=== PATIENT | male | born 1955 | race Caucasian/White ===

== ENCOUNTER → 2017-05-05 | Outpatient (CLI) | payer OTHER ==
[2017-05-05 12:50] LABS: BASO % 0.5 %; BASO ABS # 0.02 K/uL (0-0.2); EOS % 1.9 %; EOS ABS # 0.07 K/uL (0-0.5); HEMATOCRIT 43.6 % (42-52); HEMOGLOBIN 14.9 g/dL (14.0-18.0); IG# 0.01 K/uL (0.00-0.02); LYMPH % 28.3 %; LYMPH ABS # 1.06 K/uL (1.2-3.4); MEAN CELL VOLUME 90.6 fL (80-100); MEAN CORPUSCULAR HGB CONC 34.2 g/dl (32-36); MEAN PLATELET VOLUME 10.3 fL (7.4-10.4); MONO % 7.2 %; MONO ABS # 0.27 K/uL (0.11-0.59); NEUT % 61.8 %; NEUT ABS # 2.31 K/uL (1.4-6.5); PLATELET COUNT 252 K/uL (130-400); RED CELL DISTRIBUTION WIDTH SD 43.1 fL (36.4-46.3); WHITE BLOOD COUNT 3.74 K/uL (4.8-10.8)
[2017-05-05 13:44] LABS: ALBUMIN 3.9 gm/dl (3.4-5.0); ALT/SGPT 31 U/L (12-78); BLOOD UREA NITROGEN 13 mg/dl (7-18); CALCIUM 9.3 mg/dl (8.5-10.1); CARBON DIOXIDE 28 mmol/L (21-32); CHOLESTEROL 262 mg/dl (0-200); CREATININE 1.06 mg/dl (0.60-1.40); GLUCOSE 97 mg/dl (70-99); POTASSIUM 4.7 mmol/L (3.5-5.1); SODIUM 139 mmol/L (136-145)
[2017-05-05 13:47] LABS: ALKALINE PHOSPHATASE 100 U/L (45-117); AST/SGOT 20 U/L (15-37); LDL CHOLESTEROL CALCULATED 178 mg/dl; TOTAL PROTEIN 7.3 gm/dl (6.4-8.2)
== END | disposition home or self-care (01) ==
LOC: C.LABPVFM 08:30
PROVIDERS: ATTEND Nurse Practitioner Family
DX: E78.5 Hyperlipidemia, unspecified (principal); M25.50 Pain in unspecified joint; B35.1 Tinea unguium

== ENCOUNTER → 2017-06-06 | Outpatient (CLI) | payer OTHER ==
--- NOTE | 2017-06-06 16:44 | MYOCARDIAL PERFUSION SCAN ---
NUCLEAR STRESS TEST STUDY REQUESTED BY: Charito Bernstein. STUDY TITLE: ONE-DAY NUCLEAR MEDICINE TECHNETIUM-99M MYOCARDIAL PERFUSION SCAN. INDICATION: Atypical chest pain. ECHOCARDIOGRAM: Sinus bradycardia at a ventricular rate of 52. There are no significant ST abnormalities. STRESS ECHOCARDIOGRAM. The patient exercised for 10 minutes and 13 seconds achieving 13.4 METS, a maximum blood pressure of 150/60. His heart rate aishwarya from 66-139 representing 88% of maximum predicted heart rate. There were no dynamic ST changes with exercise. No chest pain with stress. TECHNIQUE: For the stress portion of the study 32.6 mCi of technetium-99m Cardiolite IV was injected at 9:30 a.m. on 06/06/2017. Fifteen minutes following the injection, imaging of the heart was performed in multiple projections. For the rest portion of the study, 10.5 mCi of technetium-99m Cardiolite was injected IV at 7:35 a.m. One hour following injection, imaging of the heart was performed in the same projections. FINDINGS: Raw images were reviewed in detail. There was minimal gut uptake impacting the inferior imaging border of the heart. There was minimal vertical motion, more so on stress than rest. Short axis, long, vertical long axis, horizontal long axis images were reviewed in detail. There was normal myocardial perfusion both with stress and rest. LV size was normal with a calculated end-diastolic volume of 94. LV function was normal with a calculated ejection fraction of 55%. There were no regional wall motion abnormalities. IMPRESSION: 1. Normal myocardial perfusion scan negative for significant exercise induced ischemia. 2. Normal left ventricular size and function with an ejection fraction of 55% with no regional wall motion abnormalities. 3. Negative stress ECG for ischemia at 88% MPHR 4. Excellent functional capacity. Exercised 10:13 minutes achieved 13.4 METS. Overall, the combined findings represent a low risk stress test for adverse future cardiac events. [facility]
== END | disposition home or self-care (01) ==
LOC: C.NUCL 07:07
PROVIDERS: ATTEND Nurse Practitioner Family
DX: R07.89 Other chest pain (principal)

== ENCOUNTER → 2017-10-31 | Outpatient (CLI) | payer OTHER | END | disposition home or self-care (01) | LOC: C.PATHSPEC 17:21 | PROVIDERS: ATTEND Urology | DX: N40.0 Benign prostatic hyperplasia without lower urinary tract symptoms (principal); R31.9 Hematuria, unspecified ==

== ENCOUNTER → 2017-11-06 | Outpatient (CLI) | payer OTHER ==
[~2017-11-06] MED LIST: OPTIRAY 320 IV PRN
[2017-11-06 16:34] LABS: HEMATOCRIT 42.3 % (42-52); HEMOGLOBIN 14.7 g/dL (14.0-18.0); MEAN CELL VOLUME 88.5 fL (80-100); MEAN CORPUSCULAR HEMOGLOBIN 30.8 pg (25-34); MEAN CORPUSCULAR HGB CONC 34.8 g/dl (32-36); MEAN PLATELET VOLUME 9.4 fL (7.4-10.4); PLATELET COUNT 236 K/uL (130-400); RED CELL DISTRIBUTION WIDTH CV 12.5 % (11.5-14.5); RED CELL DISTRIBUTION WIDTH SD 40.2 fL (36.4-46.3); WHITE BLOOD COUNT 3.68 K/uL (4.8-10.8)
--- NOTE | 2017-11-06 17:50 | DIAGNOSTIC IMAGING REPORT ---
CT UROGRAM CLINICAL HISTORY: Hematuria. Benign prostatic hyperplasia. COMPARISON STUDY: No priors. TECHNIQUE: Before and following the IV administration of 121 cc of Optiray 320, CT urogram of the abdomen and pelvis is performed from the lung bases to the proximal femora. Images are reviewed in the axial, sagittal, and coronal planes. IV contrast was administered without complication. A dose lowering technique was utilized adhering to the principles of ALARA. CT DOSE: 935.70 mGycm FINDINGS: Lung bases: The heart is normal in size and without pericardial effusion. The lung bases are clear. There is a small hiatal hernia. Liver: The contrast-enhanced liver is normal in size, contour, and attenuation. There is no intrahepatic biliary ductal dilatation. The hepatic veins and portal veins are patent. Scattered subcentimeter hepatic cysts are noted. Gallbladder: Unremarkable. Spleen: Normal in size and attenuation. Pancreas: Unremarkable. Adrenal glands: Unremarkable. Kidneys and ureters: The contrast enhanced kidneys are normal in size and without hydronephrosis. There are no renal calculi identified on the unenhanced images. The kidneys enhance and excrete symmetrically. There is no enhancing renal cortical mass lesion identified. There is no evidence of urothelial lesion within the renal pelvis bilaterally or along the course of either ureter. Abdominal vasculature: The abdominal aorta is normal in course and caliber. Bowel: There is moderate colonic fecal retention. No bowel obstruction is seen. The appendix is not identified and reported surgically absent. Peritoneum: There is no intraperitoneal free air or abdominal ascites. There is a small fat-containing umbilical hernia. Lymphadenopathy: None. Pelvic viscera: The prostate gland is enlarged and heterogeneous, measuring 5 cm in transverse diameter. There is median lobe hypertrophy. The bladder wall is mildly thickened and trabeculated suggesting chronic outlet obstruction. The bladder is otherwise normal as imaged. Bilateral varicoceles are suggested. Skeletal structures: No lytic or blastic lesions are seen. Mild lumbosacral spondylosis is observed. IMPRESSION: 1. Unremarkable assessment of the kidneys and ureters. 2. Prostatomegaly with evidence of chronic bladder outlet obstruction. 3. Moderate colonic fecal retention. 4. Additional findings as above. Electronically signed by: Luis Graham M.D. 11/06/2017 5:49 PM Dictated Date/Time: 11/06/2017 5:28 PM
== END | disposition home or self-care (01) ==
LOC: C.CTS 15:45
PROVIDERS: ATTEND Urology
DX: R31.9 Hematuria, unspecified (principal); N40.0 Benign prostatic hyperplasia without lower urinary tract symptoms

== ENCOUNTER 2022-02-18 05:10 | Inpatient (IN) ==
[~2022-02-18 05:10] MED LIST changes: -OPTIRAY 320 IV PRN; +RAPID SEQUENCE INDUCTION BAG ONE
--- NOTE | 2022-02-18 05:29 | Emergency Department Note ---
History of Present Illness General Chief complaint: Altered Mental Status Time Seen by Provider: 02/18/22 05:15 History of Present Illness 67-year-old male presents via EMS reportedly stated to his around 11 PM that he was not feeling well had general malaise. Of note in the records the patient has a history of prostate cancer, per EMS he was found in a second floor bathroom with sonorous respirations had essentially loss of bowel and had a lateral gaze to the left and was not reportedly moving his right side but was moving his left side with a strange movement and jerking movement to the left upper extremity according to EMS. Patient had multiple episodes of vomiting. Patient did not follow any commands reportedly his blood pressure was 70 systolic patient was given 1 L of IV fluids by prehospital which increased his blood pressure reportedly the patient began to respond but was still nonverbal. There is no further history initially available to me upon presentation Home Medications Medication Instructions Recorded Confirmed Type calcium carbonate 600 mg calcium 600 mg PO QDL 04/16/18 12/07/21 History (1,500 mg) tablet (Calcium) cholecalciferol (vitamin D3) 50 2,000 unit PO QDL 04/16/18 12/07/21 History mcg (2,000 unit) tablet (Vitamin D3) vitamin E 268 mg (400 unit) capsule 400 units PO QDL 09/07/18 12/07/21 History ibuprofen 200 mg tablet 400 mg PO DAILY PRN Pain 01/21/19 12/07/21 History naproxen sodium 220 mg tablet 220 mg PO DAILY PRN Pain 01/21/19 12/07/21 History (Aleve) omeprazole 20 mg capsule,delayed 20 mg PO DAILY PRN GERD #30 caps 10/26/20 12/07/21 Rx release bicalutamide 50 mg tablet 50 mg PO DAILY 05/26/21 12/07/21 History gabapentin 300 mg capsule 300 mg PO DAILY #30 caps 11/30/21 12/07/21 Rx atorvastatin 20 mg tablet 20 mg PO QAM #90 tabs 02/14/22 Rx Allergies Allergy/AdvReac Type Severity Reaction Status Date / Time No Known Allergies Allergy Verified 12/07/21 07:59 Past Med/Surg History Medical History BPH (benign prostatic hyperplasia) Cervical herniated disc History of brachytherapy Hx of colonic polyps Hx of skin cancer, basal cell Hyperlipidemia Lumbar facet joint syndrome Neck pain with occasional numbness/tingling in right arm Neurogenic claudication due to lumbar spinal stenosis Osteoarthritis Osteoporosis Prostate cancer Radiation, brachytherapy and lupron injections Surgical History H/O: vasectomy History of appendectomy History of cervical spinal surgery discectomy (1992) History of colonoscopy History of cystoscopy S/P left knee arthroscopy S/P Mohs surgery for basal cell carcinoma FACE Family History Father , age 88 old age PMH prostate ca Prostate cancer Mother , age 88 old age Dementia Sister No problems noted. Brother Controlled type 2 diabetes mellitus Brother No problems noted. Brother No problems noted. Brother No problems noted. Brother , age 13 rheumatic heart disease No problems noted. 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 Feels Safe at Home: Yes Childhood Exposure to Second-Hand Smoke: No caffeine: Yes (coffee) Dental Care, Regularly: Yes Physical Activity Frequency: Daily Seatbelt Use: always Sunscreen Use: Yes Assistive Devices: Glasses Review of Systems Unobtainable due to reduced consciousness nonverbal Physical Exam Vital Signs Vital Signs - 24 hr 02/18/22 05:16 02/18/22 05:12 02/18/22 05:15 Pulse Rate 88 88 Pulse Rate from SpO2 Sensor 89 Pulse Rhythm Regular Pulse Strength Normal Respiratory Rate 20 16 Respiratory Effort / Characteristics Non-Labored Spontaneous Respiratory Depth Normal Respiratory Pattern Regular Blood Pressure 93/58 L 93/53 L Blood Pressure Mean 69 66 Pulse Oximetry 96 89 L 97 Oxygen Delivery Method Non-rebreather Oxygen Flow Rate 15 Sepsis Recent Fever Within 48 Hours No Sepsis New/Unexplained Change in Mental Status Yes Sepsis Action Taken by Nursing Physician Notified 02/18/22 05:39 02/18/22 05:41 02/18/22 05:45 Pulse Rate 84 93 H 101 H Pulse Rate from SpO2 Sensor 86 87 95 H Pulse Rhythm Pulse Strength Respiratory Rate 18 16 14 Respiratory Effort / Characteristics Respiratory Depth Respiratory Pattern Blood Pressure 91/63 L Blood Pressure Mean 72 Pulse Oximetry 94 99 95 Oxygen Delivery Method Oxygen Flow Rate Sepsis Recent Fever Within 48 Hours Sepsis New/Unexplained Change in Mental Status Sepsis Action Taken by Nursing 02/18/22 05:46 02/18/22 05:47 02/18/22 05:47 Pulse Rate 97 H 95 H Pulse Rate from SpO2 Sensor 98 H 100 H Pulse Rhythm Pulse Strength Respiratory Rate 15 16 Respiratory Effort / Characteristics Respiratory Depth Respiratory Pattern Blood Pressure 88/59 L 88/59 L Blood Pressure Mean 68 68 Pulse Oximetry 97 95 Oxygen Delivery Method Oxygen Flow Rate Sepsis Recent Fever Within 48 Hours Sepsis New/Unexplained Change in Mental Status Sepsis Action Taken by Nursing 02/18/22 05:55 02/18/22 06:00 02/18/22 06:00 Pulse Rate 93 H 94 H Pulse Rate from SpO2 Sensor 100 H 95 H Pulse Rhythm Pulse Strength Respiratory Rate 17 20 Respiratory Effort / Characteristics Respiratory Depth Respiratory Pattern Blood Pressure 106/63 Blood Pressure Mean 77 Pulse Oximetry 88 L 95 Oxygen Delivery Method Oxygen Flow Rate Sepsis Recent Fever Within 48 Hours Sepsis New/Unexplained Change in Mental Status Sepsis Action Taken by Nursing 02/18/22 06:15 02/18/22 06:15 02/18/22 06:30 Pulse Rate 101 H Pulse Rate from SpO2 Sensor 103 H Pulse Rhythm Pulse Strength Respiratory Rate 18 Respiratory Effort / Characteristics Respiratory Depth Respiratory Pattern Blood Pressure 115/65 111/68 Blood Pressure Mean 81 82 Pulse Oximetry 94 Oxygen Delivery Method Oxygen Flow Rate Sepsis Recent Fever Within 48 Hours Sepsis New/Unexplained Change in Mental Status Sepsis Action Taken by Nursing 02/18/22 06:30 02/18/22 06:45 Pulse Rate 106 H 100 H Pulse Rate from SpO2 Sensor 98 H 98 H Pulse Rhythm Pulse Strength Respiratory Rate 26 H 20 Respiratory Effort / Characteristics Respiratory Depth Respiratory Pattern Blood Pressure 103/76 Blood Pressure Mean 85 Pulse Oximetry 91 87 L Oxygen Delivery Method Oxygen Flow Rate Sepsis Recent Fever Within 48 Hours Sepsis New/Unexplained Change in Mental Status Sepsis Action Taken by Nursing GENERAL: Patient is awake; not following commands; stool on hands and legs; has lateral gaze to left and right sided neglect EYES: The conjunctivae are clear. The pupils are round and reactive. EARS, NOSE, MOUTH AND THROAT: The nose is without any evidence of any deformity. Mucous membranes are moist. Tongue is midline. NECK: The neck is supple RESPIRATORY: Normal respiratory effort is noted ; there is rhonchi b/l CARDIOVASCULAR: Regular rate and rhythm noted there no murmurs rubs or gallops normal S1 normal S2. GASTROINTESTINAL: The abdomen is soft. PELVIS: The Pelvis is stable BACK: No signs of trauma MUSCULOSKELETAL/EXTREMITIES: There is no evidence of gross deformity; initially patient was slow to move the right upper and right lower extremities; SKIN: There is no obvious evidence of any rash. There are no petechiae, pallor or cyanosis noted; stool on hands and legs NEUROLOGIC: Patient is awake, nonverbal, has a left lateral gaze Course Reevaluation(s) Reevaluation #1: Stroke alert was initiated after the patient returned from CAT scan is initially a CODE BLUE was called due to the fact that EMS said that the patient was agonal and vomiting was hypotensive and was unresponsive with possible posturing. Time: 05:48 Reevaluation #2: Patient is still nonverbal he is coughing he is grabbing at the nonrebreather mask but is not interactive with myself or was at bedside Time: 06:10 Reevaluation #3: Patient is still nonverbal at times coughing has a blood pressure; greater than 102 Time: 06:30 Consultations Consultation #1: Spoke with at bedside she stated last night he did not feel well around 11 PM he complained of general malaise and may be a headache. He typically has never complained of a headache. She then found him unresponsive in the bathroom at approximately 4 AM Time: 05:50 Consultation #2: Consult to Dr. Dinh from telestroke after the patient returned from CT, continues to have verbal neurologic exam not following commands moving all extremities however and coughing. She states that she will see the patient and evaluate on the telestroke monitor Time: 05:51 Consultation #3: Spoke with the patient's at bedside and she was asking if there is a protocol for stroke. Myself and the nursing staff reviewed that we are in fact initiating the stroke protocol and its in process currently and that a neurologist has been speaking to the patient on telestroke. Patient's CTs are negative. Spoke with the hospitalist from [facility] for admission and discussed that the issues after consultation with neurology. Also discussed the patient's presentation with Bk the physician journeyman operator assistant from the ICU Time: 06:10 Additional Consultation(s): 6:13 AM I spoke with Dr. Dinh again the patient is not a thrombectomy ca ndidate she would like to get a stat MRI with diffusion-weighted imaging and FLAIR imaging as this could be a wake-up stroke and if there is a mismatch there is a possibility that this patient could receive TNKase. 631 I also spoke to Dr. Dinh again and discussed the fact that the MRI will be obtained 700am - Case turned over to Dr Meng pending MRI and admit Administered Medications Discontinued Medications Sodium Chloride (Nss 1000ml) 1,000 mls @ 999 mls/hr IV .Q1H1M ONE Stop: 02/18/22 06:52 Last Infusion: 02/18/22 06:54 Dose: 0 mls/hr Documented By: Admin: 02/18/22 05:59 Dose: 999 mls/hr Documented By: AYANNA Ioversol (Optiray 320 500ml) 125 ml IV ONCE ONE Stop: 02/18/22 05:57 Last Admin: 02/18/22 05:56 Dose: 106 ml Documented By: ANABEL Lorazepam (Lorazepam 1 Mg/1 Ml Syr) 1 mg IV NOW STA; Protocol Stop: 02/18/22 06:49 Last Admin: 02/18/22 06:51 Dose: 1 mg Documented By: AYANNA Lorazepam (Lorazepam 1 Mg/1 Ml Syr) 1 mg IV NOW STA; Protocol Stop: 02/18/22 06:58 Last Admin: 02/18/22 06:59 Dose: 1 mg Documented By: AYANNA Ondansetron HCl (Ondansetron Inj 2 Mg/Ml 2 Ml Vial) 4 mg IV NOW STA Stop: 02/18/22 05:53 Last Admin: 02/18/22 06:00 Dose: 4 mg Documented By: AYANNA Critical Care Time Critical Care Time: Yes Total Critical Care Time: 45 I have personally spent greater than 45 minutes of critical care time in the direct management of this patient. This includes bedside care, interpretation of diagnostic studies, and testing, discussion with consultants, patient, and family members, and other required patient management activities. These minutes are in excess of all separately billable procedures. Medical Decision Making Medical Records Attestation: I reviewed the patient's medical records. Home Medications Current Medication List: was personally reviewed by me Laboratory Data Attestation: I reviewed the patient's lab results. Result diagrams: 02/18/22 05:22 02/18/22 05:22 Lab Results 02/18/22 02/18/22 02/18/22 Range/Units 05:22 05:22 05:22 WBC 6.76 (4.8-10.8) K/ul RBC 3.87 L (4.63-6.08) M/uL Hgb 12.8 L (14.0-18.0) g/dl POC Hgb (14.0-18.0) g/dl Hct 35.3 L (40.1-51.0) % POC Hct (42-52) % MCV 91.2 (80.0-100.0) fL MCH 33.1 (25.0-34.0) pg MCHC 36.3 H (32.0-36.0) g/dL RDW Std Deviation 41.3 (36.4-46.3) fL RDW Coeff of Tulio 12.4 (11.5-14.5) % Plt Count 213 (130-400) K/uL MPV 9.8 (9.4-12.4) fL Immature Gran % (Auto) 0.3 % Neut % (Auto) 86.3 % Lymph % (Auto) 7.7 % [place] % (Auto) 4.7 % Eos % (Auto) 0.9 % Baso % (Auto) 0.1 % Neut # (Auto) 5.83 (1.4-6.5) K/uL Lymph # (Auto) 0.52 L (1.2-3.4) K/uL [place] # (Auto) 0.32 (0.24-0.82) K/uL Eos # (Auto) 0.06 (0-0.50) K/uL Baso # (Auto) 0.01 (0-0.2) K/uL Immature Gran # (Auto) 0.02 (0.00-0.02) K/uL PT 10.5 (9.0-12.0) Seconds INR 1.0 (0.9-1.1) APTT 21.4 (21.0-31.0) Seconds PTT Ratio 0.8 POC Sodium (135-144) mmol/L Sodium (136-145) mmol/L POC Potassium (3.3-5.0) mmol/L Potassium (3.5-5.1) mmol/L POC Chloride (101-112) mmol/L Chloride (98-107) mmol/L Carbon Dioxide (21-32) mmol/L POC Total CO2 (24-31) mmol/L Anion Gap (3-11) POC Anion Gap (16-25) mmol/L POC BUN (7-18) mg/dl BUN (6-23) mg/dl Creatinine (0.6-1.4) mg/dl POC Creatinine (0.6-1.3) mg/dl Est Cr Clr Drug Dosing ml/min Est GFR ( Amer) ml/min Est GFR (Non-Af Amer) ml/min BUN/Creatinine Ratio (10-20) Glucose (70-99(Fasting)) mg/dl POC Glucose (other) (70-99) mg/dl Calcium (8.5-10.1) mg/dl POC Ioniz Calcium Josefina (1.12-1.32) mmol/l Magnesium (1.7-2.4) mg/dl Total Bilirubin (0.2-1.0) mg/dl AST (13-39) U/L ALT (7-52) U/L Alkaline Phosphatase (34-104) U/L Troponin I High Sens (0-20) pg/ml Total Protein (6.0-8.3) gm/dl Albumin (3.4-5.0) gm/dl Globulin (2.5-4.0) gm/dl Albumin/Globulin Ratio (0.9-2) SARS-CoV-2, RNA, NAAT (NEGATIVE) Blood Type O Positive Antibody Screen NEGATIVE 02/18/22 02/18/22 02/18/22 Range/Units 05:22 05:28 05:57 WBC (4.8-10.8) K/ul RBC (4.63-6.08) M/uL Hgb (14.0-18.0) g/dl POC Hgb 11.6 L (14.0-18.0) g/dl Hct (40.1-51.0) % POC Hct 34 L (42-52) % MCV (80.0-100.0) fL MCH (25.0-34.0) pg MCHC (32.0-36.0) g/dL RDW Std Deviation (36.4-46.3) fL RDW Coeff of Tulio (11.5-14.5) % Plt Count (130-400) K/uL MPV (9.4-12.4) fL Immature Gran % (Auto) % Neut % (Auto) % Lymph % (Auto) % [place] % (Auto) % Eos % (Auto) % Baso % (Auto) % Neut # (Auto) (1.4-6.5) K/uL Lymph # (Auto) (1.2-3.4) K/uL [place] # (Auto) (0.24-0.82) K/uL Eos # (Auto) (0-0.50) K/uL Baso # (Auto) (0-0.2) K/uL Immature Gran # (Auto) (0.00-0.02) K/uL PT (9.0-12.0) Seconds INR (0.9-1.1) APTT (21.0-31.0) Seconds PTT Ratio POC Sodium 139 (135-144) mmol/L Sodium 138 (136-145) mmol/L POC Potassium 4.0 (3.3-5.0) mmol/L Potassium 3.9 (3.5-5.1) mmol/L POC Chloride 104 (101-112) mmol/L Chloride 106 (98-107) mmol/L Carbon Dioxide 25 (21-32) mmol/L POC Total CO2 24 (24-31) mmol/L Anion Gap 7 (3-11) POC Anion Gap 17.0 (16-25) mmol/L POC BUN 18 (7-18) mg/dl BUN 18 (6-23) mg/dl Creatinine 1.24 (0.6-1.4) mg/dl POC Creatinine 1.3 (0.6-1.3) mg/dl Est Cr Clr Drug Dosing 65.2 ml/min Est GFR ( Amer) 68.8 ml/min Est GFR (Non-Af Amer) 59.4 ml/min BUN/Creatinine Ratio 14.5 (10-20) Glucose 187 H (70-99(Fasting)) mg/dl POC Glucose (other) 182 H (70-99) mg/dl Calcium 8.5 (8.5-10.1) mg/dl POC Ioniz Calcium Josefina 1.18 (1.12-1.32) mmol/l Magnesium 1.8 (1.7-2.4) mg/dl Total Bilirubin 0.6 (0.2-1.0) mg/dl AST 16 (13-39) U/L ALT 12 (7-52) U/L Alkaline Phosphatase 81 (34-104) U/L Troponin I High Sens 5.4 (0-20) pg/ml Total Protein 6.1 (6.0-8.3) gm/dl Albumin 3.7 (3.4-5.0) gm/dl Globulin 2.4 L (2.5-4.0) gm/dl Albumin/Globulin Ratio 1.5 (0.9-2) SARS-CoV-2, RNA, NAAT NEGATIVE (NEGATIVE) Blood Type Antibody Screen Imaging Data Attestation: I personally reviewed and interpreted this imaging study as follows: My Impression: Chest x-ray negative for infiltrate as interpreted by me Radiologist's Impression: Head CT 02/18/22 05:[address] OF THE BRAIN; CT ANGIOGRAM OF THE BRAIN; CT ANGIOGRAM OF THE NECK CLINICAL HISTORY: Strokelike symptoms. COMPARISON STUDY: No priors. TECHNIQUE: Unenhanced axial CT scan of the brain is performed. Subsequently, following the IV administration of 106 of Optiray 320, CT angiogram of the head and neck was performed from the aortic arch to the vertex. Images are reviewed in the axial, sagittal, and coronal planes. 3-D MIPS images are created and assessed. IV contrast was administered without complication. All measurements were calculated based on NASCET criteria. A dose lowering technique was utilized adhering to the principles of ALARA. The neck angiogram is degraded by motion artifact. CT DOSE: 1261.43 mGy.cm FINDINGS: Brain parenchyma: There is minimal microangiopathic change. There is no hemorrhage, mass effect, or evidence of acute territorial ischemia by CT criteria. There is no evidence of enhancing mass lesion on the angiogram phase images. The ventricles, sulci, and cisterns are normal in configuration. Ferreira- white matter differentiation is preserved. No extra-axial fluid collection is seen. Thoracic aorta: There is atherosclerotic calcification of the thoracic aorta. Visualized portions of the thoracic aorta are normal in caliber. The aortic arch demonstrates standard 3-vessel anatomy. Right carotid arterial system: The right common carotid artery is widely patent, as are the right internal and external carotid arteries. Left carotid arterial system: The vertebral arteries are widely patent bilaterally noting mild left-sided dominance. Vertebral arteries: The left common carotid artery is widely patent, as are the left internal and external carotid arteries. Subclavian arteries: Widely patent bilaterally. Intracranial vasculature: The internal carotid arteries are patent at the skull base, as are the anterior and middle cerebral arteries bilaterally. The vertebrobasilar system and posterior cerebral arteries are widely patent. The left vertebral artery is dominant. There is no aneurysm, high-grade stenosis, or focal vessel cut off seen throughout the intracranial circulation. Jugular veins: Patent bilaterally. Dural sinuses: Patent. Lung apices: Partially visualized upper lobe lung parenchyma appears clear. Soft tissues: The visualized pharyngeal soft tissues are normal in appearance noting angiographic phase technique. The oropharyngeal airway appears widely patent. The salivary and thyroid glands are normal in appearance. No cervical lymphadenopathy is seen. Skeletal structures: The calvarium appears intact. The cervical spine is maintained noting multilevel spondylosis. No lytic or blastic lesion is seen. Orbits: The bony orbits are intact. Orbital contents are normal as visualized. Sinuses and mastoids: There is trace fluid within the seen with sinusitis. The remaining paranasal sinuses are clear. The mastoid air cells are well pneumatized. IMPRESSION: 1. There is no hemorrhage, mass effect, or evidence of acute territorial ischemia by CT criteria. 2. Unremarkable CT angiogram of the brain. 3. Unremarkable CT angiogram of the neck. ACT 112: Negative or not required by law. Electronically signed by: Luis Graham M.D. 02/18/2022 6:17 AM Head CTA 02/18/22 05:[address] OF THE BRAIN; CT ANGIOGRAM OF THE BRAIN; CT ANGIOGRAM OF THE NECK CLINICAL HISTORY: Strokelike symptoms. COMPARISON STUDY: No priors. TECHNIQUE: Unenhanced axial CT scan of the brain is performed. Subsequently, fo llowing the IV administration of 106 of Optiray 320, CT angiogram of the head and neck was performed from the aortic arch to the vertex. Images are reviewed in the axial, sagittal, and coronal planes. 3-D MIPS images are created and assessed. IV contrast was administered without complication. All measurements were calculated based on NASCET criteria. A dose lowering technique was utilized adhering to the principles of ALARA. The neck angiogram is degraded by motion artifact. CT DOSE: 1261.43 mGy.cm FINDINGS: Brain parenchyma: There is minimal microangiopathic change. There is no hemorrhage, mass effect, or evidence of acute territorial ischemia by CT criteria. There is no evidence of enhancing mass lesion on the angiogram phase images. The ventricles, sulci, and cisterns are normal in configuration. Ferreira-white matter differentiation is preserved. No extra-axial fluid collection is seen. Thoracic aorta: There is atherosclerotic calcification of the thoracic aorta. Visualized portions of the thoracic aorta are normal in caliber. The aortic arch demonstrates standard 3-vessel anatomy. Right carotid arterial system: The right common carotid artery is widely patent, as are the right internal and external carotid arteries. Left carotid arterial system: The vertebral arteries are widely patent bilaterally noting mild left-sided dominance. Vertebral arteries: The left common carotid artery is widely patent, as are the left internal and external carotid arteries. Subclavian arteries: Widely patent bilaterally. Intracranial vasculature: The internal carotid arteries are patent at the skull base, as are the anterior and middle cerebral arteries bilaterally. The vertebrobasilar system and posterior cerebral arteries are widely patent. The left vertebral artery is dominant. There is no aneurysm, high-grade stenosis, or focal vessel cut off seen throughout the intracranial circulation. Jugular veins: Patent bilaterally. Dural sinuses: Patent. Lung apices: Partially visualized upper lobe lung parenchyma appears clear. Soft tissues: The visualized pharyngeal soft tissues are normal in appearance noting angiographic phase technique. The oropharyngeal airway appears widely patent. The salivary and thyroid glands are normal in appearance. No cervical lymphadenopathy is seen. Skeletal structures: The calvarium appears intact. The cervical spine is maintained noting multilevel spondylosis. No lytic or blastic lesion is seen. Orbits: The bony orbits are intact. Orbital contents are normal as visualized. Sinuses and mastoids: There is trace fluid within the seen with sinusitis. The remaining paranasal sinuses are clear. The mastoid air cells are well pneumat ized. IMPRESSION: 1. There is no hemorrhage, mass effect, or evidence of acute territorial ischemia by CT criteria. 2. Unremarkable CT angiogram of the brain. 3. Unremarkable CT angiogram of the neck. ACT 112: Negative or not required by law. Electronically signed by: Luis Graham M.D. 02/18/2022 6:17 AM Neck CTA 02/18/22 05:[address] OF THE BRAIN; CT ANGIOGRAM OF THE BRAIN; CT ANGIOGRAM OF THE NECK CLINICAL HISTORY: Strokelike symptoms. COMPARISON STUDY: No priors. TECHNIQUE: Unenhanced axial CT scan of the brain is performed. Subsequently, following the IV administration of 106 of Optiray 320, CT angiogram of the head and neck was performed from the aortic arch to the vertex. Images are reviewed in the axial, sagittal, and coronal planes. 3-D MIPS images are created and assessed. IV contrast was administered without complication. All measurements were calculated based on NASCET criteria. A dose lowering technique was utilized adhering to the principles of ALARA. The neck angiogram is degraded by motion artifact. CT DOSE: 1261.43 mGy.cm FINDINGS: Brain parenchyma: There is minimal microangiopathic change. There is no hemorr johny, mass effect, or evidence of acute territorial ischemia by CT criteria. There is no evidence of enhancing mass lesion on the angiogram phase images. The ventricles, sulci, and cisterns are normal in configuration. Ferreira-white matter differentiation is preserved. No extra-axial fluid collection is seen. Thoracic aorta: There is atherosclerotic calcification of the thoracic aorta. Visualized portions of the thoracic aorta are normal in caliber. The aortic arch demonstrates standard 3-vessel anatomy. Right carotid arterial system: The right common carotid artery is widely patent, as are the right internal and external carotid arteries. Left carotid arterial system: The vertebral arteries are widely patent bilate rally noting mild left-sided dominance. Vertebral arteries: The left common carotid artery is widely patent, as are the left internal and external carotid arteries. Subclavian arteries: Widely patent bilaterally. Intracranial vasculature: The internal carotid arteries are patent at the skull base, as are the anterior and middle cerebral arteries bilaterally. The vertebrobasilar system and posterior cerebral arteries are widely patent. The left vertebral artery is dominant. There is no aneurysm, high-grade stenosis, or focal vessel cut off seen throughout the intracranial circulation. Jugular veins: Patent bilaterally. Dural sinuses: Patent. Lung apices: Partially visualized upper lobe lung parenchyma appears clear. Soft tissues: The visualized pharyngeal soft tissues are normal in appearance noting angiographic phase technique. The oropharyngeal airway appears widely patent. The salivary and thyroid glands are normal in appearance. No cervical lymphadenopathy is seen. Skeletal structures: The calvarium appears intact. The cervical spine is maintained noting multilevel spondylosis. No lytic or blastic lesion is seen. Orbits: The bony orbits are intact. Orbital contents are normal as visualized. Sinuses and mastoids: There is trace fluid within the seen with sinusitis. The remaining paranasal sinuses are clear. The mastoid air cells are well pneumatized. IMPRESSION: 1. There is no hemorrhage, mass effect, or evidence of acute territorial ischemia by CT criteria. 2. Unremarkable CT angiogram of the brain. 3. Unremarkable CT angiogram of the neck. ACT 112: Negative or not required by law. Electronically signed by: Luis Graham M.D. 02/18/2022 6:17 AM Chest X-Ray 02/18/22 05:45 SUPINE PORTABLE CHEST RADIOGRAPH CLINICAL HISTORY: Cough. COMPARISON STUDY: Chest radiograph June 10, 2018. FINDINGS: Lung volumes are normal. Lungs are clear. There is no pneumothorax or pleural effusion. Cardiac size is normal. Mediastinal prominence is likely due to supine technique as is interstitial prominence. There is no evidence for pulmonary edema. IMPRESSION: No acute cardiopulmonary findings. ACT 112: Negative or not required by law. Electronically signed by: Otoniel Elizabeth M.D. 02/18/2022 6:21 AM * Patient: ESHA RUVALCABA (Male) : 53 Status: ER Date: 02/18/22 05:45 Room #: History: STROKE SYMPTOMS Slices: 746 Priors: Tech: Santos Moy @ [phone] Exams: CTA NECK Contrast: IV Amt: 106 ML OPTIRAY 320 Accession Numbers: [id number] Referring Physician: AMY ROE Preliminary Findings Only See Final Report For Complete Findings CTA NECK: Negative CT angiogram of the neck. No comparisons. Radiologist: Karen Burns MD Study ready at 05:49 and initial results transmitted at 05:54 Communications: Clear Time Type Notes Call Doctor Stroke 5:55 AM10 days leftPatient: ESHA RUVALCABA (Male) : 53 Status: ER Date: 02/18/22 05:46 Room #: History: STROKE SYMPTOMS Slices: 67 Priors: Tech: Santos Moy @ [phone] Exams: CT HEAD Contrast: Accession Numbers: [id number] Referring Physician: AMY ROE Preliminary Findings Only See Final Report For Complete Findings CT HEAD: No evidence of acute intracranial pathology. No comparisons. Radiologist: Karen Burns MD Study ready at 05:49 and initial results transmitted at 05:56 Communications: Clear Time Type Notes Call Doctor Stroke 5:57 AM10 days leftPatient: ESHA RUVALCABA (Male) : 53 Status: ER Date: 02/18/22 05:46 Room #: History: STROKE SYMPTOMS Slices: 515 Priors: Tech: KristinaSantos barnett @ [phone] Exams: CTA HEAD Contrast: IV Amt: 106 ML OPTIRAY 320 Accession Numbers: [id number] Referring Physician: AMY ROE Preliminary Findings Only See Final Report For Complete Findings CTA HEAD: Negative CT angiogram of the head. No comparisons. Radiologist: Karen Burns MD Study ready at 05:56 and initial results transmitted at 05:57 Communications: Clear Time Type Notes Call Doctor Stroke5:59 AM10 days left ECG Data Attestation: I personally reviewed and interpreted this ECG as follows: Additional Comments: EKG interpreted by me normal sinus rhythm normal intervals normal axis no obvious ST segment elevation or depression rate of 87 Blood Pressure Blood Pressure Findings: Low blood pressure Additional Comments: Patient was given 2 L of IV fluids his blood pressure is now greater than 102 MDM Narrative Medical decision making differential diagnosis includes subarachnoid hemorrhage, subdural hemorrhage, intracranial hemorrhage, hemorrhagic stroke, stroke, seizure, cardiac event,sepsis; plan is to check CAT scans, labs Patient was evaluated for alteration mental status had a left lateral gaze, the onset of the patient's symptoms seem to be at 4 AM however the last known well could be anywhere between 11 PM and presentation to the emergency department. Patient underwent CT imaging initially the patient was hypotensive the patient was altered the patient had a left lateral gaze. Seizure activity is in the differential head trauma is also in the differential. Patient's is at bedside I have explained that we have a stroke protocol process that is being undertaken. Patient CTs including CT brain CT angio of the head and CT angio of the neck are negative. There is a stat consultation with a neurologist. She recommends a MRI of the brain stat to see if there is a diffusion and FLAIR mismatch. Case was also discussed with the ICU physician journeyman operator assistant. The case was discussed with the [facility] hospitalist for admission. The patient will receive an MRI for further ration of the current presentation. This time the patient is currently not a TNKase candidate at 630am Impression & Plan Acute alteration in mental status, Aspiration pneumonia Discharge Plan Visit Data Chief Complaint: Altered Mental Status ED Provider: Amy Roe Discharge Problem: Acute alteration in mental status, Aspiration pneumonia Patient Disposition: Admitted As Inpatient Forms Stand Alone Forms: My [facility] Prescriptions Prescriptions: No Action bicalutamide 50 mg tablet 50 mg PO DAILY omeprazole 20 mg capsule,delayed release(DR/EC) 20 mg PO DAILY PRN (Reason: GERD) Qty: 30 11RF atorvastatin 20 mg tablet 20 mg PO QAM Qty: 90 3RF gabapentin 300 mg capsule 300 mg PO DAILY Qty: 30 3RF Rx Instructions: dose change calcium carbonate [Calcium 600] 600 mg calcium (1,500 mg) Tablet 600 mg PO QDL cholecalciferol (vitamin D3) [Vitamin D3] 2,000 unit Tablet 2,000 unit PO QDL ibuprofen 200 mg Tablet 400 mg PO DAILY PRN (Reason: Pain) naproxen sodium [Aleve] 220 mg Tablet 220 mg PO DAILY PRN (Reason: Pain) vitamin E 400 unit capsule 400 units PO QDL Referrals Referrals: Aracelis Mclain CRNP [Primary Care Provider] -
[2022-02-18 05:37] LABS: Basophils # (auto) 0.01 K/uL (0-0.2); Basophils % (auto) 0.1 %; Eosinophils # (auto) 0.06 K/uL (0-0.50); Eosinophils % (auto) 0.9 %; Hematocrit (blood only) 35.3 % (40.1-51.0); Hemoglobin 12.8 g/dl (14.0-18.0); Immature Granulocytes # (auto) 0.02 K/uL (0.00-0.02); Immature Granulocytes % (auto) 0.3 %; Lymphocytes # (auto) 0.52 K/uL (1.2-3.4); Lymphocytes % (auto) 7.7 %; Mean Corpuscular Hemoglobin 33.1 pg (25.0-34.0); Mean Corpuscular Hgb Conc 36.3 g/dL (32.0-36.0); Mean Corpuscular Volume 91.2 fL (80.0-100.0); Mean Platelet Volume 9.8 fL (9.4-12.4); Monocytes # (auto) 0.32 K/uL (0.24-0.82); Monocytes % (auto) 4.7 %; Neutrophils # (auto) 5.83 K/uL (1.4-6.5); Neutrophils % (auto) 86.3 %; Platelet Count 213 K/uL (130-400); RDW Coefficient of Variation 12.4 % (11.5-14.5); RDW Standard Deviation 41.3 fL (36.4-46.3); Red Blood Count 3.87 M/uL (4.63-6.08); White Blood Count 6.76 K/ul (4.8-10.8)
[2022-02-18 05:43] LABS: iSTAT Creatinine 1.3 mg/dl (0.6-1.3); iSTAT Hemoglobin 11.6 g/dl (14.0-18.0); iSTAT Ionized Calcium 1.18 mmol/l (1.12-1.32)
[2022-02-18] MEDS ORDERED: ONDANSETRON INJ 2 MG/ML 2 ML VIAL IV STA (05:52)
[2022-02-18] MEDS ORDERED: SODIUM CHLORIDE 0.9% 1000ML 1,000 ML IV ONE (05:52)
[2022-02-18] MEDS ORDERED: OPTIRAY 320 500ml IV ONE ×2 (05:56→10:22)
[2022-02-18 06:01] LABS: Albumin Globulin Ratio 1.5 (0.9-2); Albumin Level 3.7 gm/dl (3.4-5.0); BUN Creatinine Ratio 14.5 (10-20); Bilirubin,Total 0.6 mg/dl (0.2-1.0); Calcium 8.5 mg/dl (8.5-10.1); Creatinine Clr Calc Pharmacy 65.2 ml/min; Est GFR (African American) 68.8 ml/min; Est GFR (Non-African American) 59.4 ml/min; Globulin 2.4 gm/dl (2.5-4.0); Magnesium 1.8 mg/dl (1.7-2.4); Potassium 3.9 mmol/L (3.5-5.1); Total Protein 6.1 gm/dl (6.0-8.3)
[2022-02-18] MEDS ORDERED: PIPERACILLIN/TAZOBACTAM 4.5 GM/120 ML BAG IV ONE (06:02)
[2022-02-18] MEDS ORDERED: metroNIDAZOLE 500 MG/100 ML BAG IV STA (06:02)
[2022-02-18 06:04] LABS: Partial Thromboplastin Ratio 0.8; Partial Thromboplastin Time 21.4 Seconds (21.0-31.0); Prothrombin Time 10.5 Seconds (9.0-12.0); Troponin I High Sensitivity 5.4 pg/ml (0-20)
--- NOTE | 2022-02-18 06:19 | CT Scan Report ---
UNENHANCED CT OF THE BRAIN; CT ANGIOGRAM OF THE BRAIN; CT ANGIOGRAM OF THE NECK CLINICAL HISTORY: Strokelike symptoms. COMPARISON STUDY: No priors. TECHNIQUE: Unenhanced axial CT scan of the brain is performed. Subsequently, following the IV adminis tration of 106 of Optiray 320, CT angiogram of the head and neck was performed from the aortic arch t o the vertex. Images are reviewed in the axial, sagittal, and coronal planes. 3-D MIPS images are cre ated and assessed. IV contrast was administered without complication. All measurements were calculate d based on NASCET criteria. A dose lowering technique was utilized adhering to the principles of ALA RA. The neck angiogram is degraded by motion artifact. CT DOSE: 1261.43 mGy.cm FINDINGS: Brain parenchyma: There is minimal microangiopathic change. There is no hemorrhage, mass effect, or e vidence of acute territorial ischemia by CT criteria. There is no evidence of enhancing mass lesion o n the angiogram phase images. The ventricles, sulci, and cisterns are normal in configuration. Ferreira-w rosa matter differentiation is preserved. No extra-axial fluid collection is seen. Thoracic aorta: There is atherosclerotic calcification of the thoracic aorta. Visualized portions of the thoracic aorta are normal in caliber. The aortic arch demonstrates standard 3-vessel anatomy. Right carotid arterial system: The right common carotid artery is widely patent, as are the right int ernal and external carotid arteries. Left carotid arterial system: The vertebral arteries are widely patent bilaterally noting mild left-s ided dominance. Vertebral arteries: The left common carotid artery is widely patent, as are the left internal and ext ernal carotid arteries. Subclavian arteries: Widely patent bilaterally. Intracranial vasculature: The internal carotid arteries are patent at the skull base, as are the ante rior and middle cerebral arteries bilaterally. The vertebrobasilar system and posterior cerebral keila shana are widely patent. The left vertebral artery is dominant. There is no aneurysm, high-grade steno sis, or focal vessel cut off seen throughout the intracranial circulation. Jugular veins: Patent bilaterally. Dural sinuses: Patent. Lung apices: Partially visualized upper lobe lung parenchyma appears clear. Soft tissues: The visualized pharyngeal soft tissues are normal in appearance noting angiographic pha se technique. The oropharyngeal airway appears widely patent. The salivary and thyroid glands are nor mal in appearance. No cervical lymphadenopathy is seen. Skeletal structures: The calvarium appears intact. The cervical spine is maintained noting multilevel spondylosis. No lytic or blastic lesion is seen. Orbits: The bony orbits are intact. Orbital contents are normal as visualized. Sinuses and mastoids: There is trace fluid within the seen with sinusitis. The remaining paranasal si nuses are clear. The mastoid air cells are well pneumatized. IMPRESSION: 1. There is no hemorrhage, mass effect, or evidence of acute territorial ischemia by CT criteria. 2. Unremarkable CT angiogram of the brain. 3. Unremarkable CT angiogram of the neck. ACT 112: Negative or not required by law. Electronically signed by: Luis Graham M.D. 02/18/2022 6:17 AM
--- NOTE | 2022-02-18 06:23 | XRay Report ---
SUPINE PORTABLE CHEST RADIOGRAPH CLINICAL HISTORY: Cough. COMPARISON STUDY: Chest radiograph June 10, 2018. FINDINGS: Lung volumes are normal. Lungs are clear. There is no pneumothorax or pleural effusion. Car diac size is normal. Mediastinal prominence is likely due to supine technique as is interstitial prom inence. There is no evidence for pulmonary edema. IMPRESSION: No acute cardiopulmonary findings. ACT 112: Negative or not required by law. Electronically signed by: Otoniel Elizabeth M.D. 02/18/2022 6:21 AM
[2022-02-18] MEDS ORDERED: LORazepam 1 MG/1 ML SYR IV STA ×2 (06:48→06:57)
[2022-02-18 07:11] LABS: Appearance Urine Clear (Clear); Bacteria Urine Automated Negative (Negative); Bilirubin Urine Negative (Negative); Blood Urine 1+ (Negative); Color Urine Yellow; Glucose Urine UA Negative (Negative); Ketones Urine Negative (Negative); Leukocyte Esterase Urine Negative (Negative); Nitrite Urine Negative (Negative); Protein Urine 1+ (Negative); Specific Gravity Urine > 1.045 (1.000-1.030); Urobilinogen Urine Negative (Negative)
[2022-02-18] MEDS ORDERED: levETIRAcetam 1,000 MG in 0.9 % SODIUM CHLORIDE 100 ML IV STA (07:19)
[2022-02-18 07:24] LABS: RBC Urine Automated 0-4 /hpf (0-4)
--- NOTE | 2022-02-18 07:26 | Emergency Department Note ---
ED Visit Note Patient was seen and evaluated by Dr. Roe. Stroke alert was called and patient was evaluated by [facility] neurology. Following neg CTs they recommended MRI and he discussed the case with Dr. Domenico Castro for admission as well as an Bk from ICU. Current plan is for hospitalist to admit. Patient received 2mg of Ativan prior to going to MRI. I did not physically evaluate him but I saw him going past and he was still moving around. I discussed with Dr. Dinh from [facility] and questioned how much time we had until they need the MRI in order to give TNKase/tPA. They noted that this was about 730am. I discussed intubation with them in order to facilitate a good study of an MRI although this would not be able to be performed before 730 as he would have to come back into B1 be intubated from MRI and then taken back over and at this time it was already about 714. Current plan is to obtain MRI and discussed with Dr. Dinh admit to the hospitalist here. CTAs were negative. They also recommended a gram of Keppra per Dr. Dinh. I tiger texted Dr. Elizabeth to read MR. MR resulted neg and then call Dr. Dinh on her private cell phone to discuss these findings at around 0830. Dr. Snow had already seen the Pt and did go to discuss the findings with radiology. At this time Dr Dinh recommends admission evaluation by neurology and additional 500 mg of Keppra. At 0940 I noticed that the Pt did have a fever. Meningitis antibiotics had already been ordered by Dr. Snow. I received a phone call from anesthesia at 0945 as they were contacted by Dr. Snow to perform an LP and they were going to sedate perform the LP at the same time as the patient was moving around significantly prior to this. Patient did receive a bed shortly thereafter and was transferred to the ICU where they will be met by anesthesia has I discussed with them to perform the LP under sedation although the patient is becoming slightly less aggravated and agitated. I did update the multiple times while here. .
[2022-02-18] MEDS ORDERED: SODIUM CHLORIDE 0.9% 1000ML 2,000 ML IV ONE (08:08)
[2022-02-18 08:12] LABS: Amphetamines+Metham, Urine Neg (Neg); Barbiturates, Urine Neg (Neg); Benzodiazepine, Urine Neg (Neg); Cocaine, Urine Neg (Neg); MDMA (Ecstacy), Urine Neg (Neg); Methadone, Urine Neg (Neg); Opiate, Urine Neg (Neg); Phencyclidine, Urine Neg (Neg)
--- NOTE | 2022-02-18 08:21 | Magnetic Resonance Report ---
MRI OF THE BRAIN WITHOUT IV CONTRAST CLINICAL HISTORY: Strokelike symptoms. Malaise. COMPARISON STUDY: CT of the brain dated 02/18/2022. TECHNIQUE: MRI of the brain was performed utilizing various T1 and T2-weighted sequences in the axial , sagittal, and coronal planes. IV contrast was not administered for this examination. The examinatio n is severely degraded by motion artifact. Several of the axial sequences exclude the vertex. This de grades diagnostic utility. FINDINGS: Brain parenchyma: There is minimal microangiopathic change. There is no hemorrhage or mass effect. Th ere is no restricted diffusion to suggest acute ischemia. Ferreira-white matter differentiation is preser chino. No extra-axial fluid collection is seen. The cerebellar tonsils are normal in configuration. Ventricles, sulci, and cisterns: Normal in configuration. Pituitary and sella: Unremarkable. Intracranial vasculature: Normal flow voids are maintained at the skull base. Orbits: The bony orbits are grossly intact. Orbital contents are normal in appearance. Sinuses and mastoids: There is fluid within sphenoid sinuses. The remaining paranasal sinuses are samson ar. The mastoid air cells are well pneumatized. Calvarium: Unremarkable. Cervical cord: Partially visualized cervical spinal cord is normal in morphology and signal intensity . IMPRESSION: No acute intracranial abnormality is identified noting a severely motion compromised exam ination. This degrades diagnostic utility. ACT 112: Negative or not required by law. Electronically signed by: Luis Graham M.D. 02/18/2022 8:19 AM
[2022-02-18] MEDS ORDERED: levETIRAcetam 500 MG in 0.9 % SODIUM CHLORIDE 100 ML IV STA (08:31)
[2022-02-18 09:04] LABS: iSTAT Arterial Blood Gas HCO3 21 meg/L (19-24); iSTAT Arterial Blood Gas pCO2 35 mmHg (35-46); iSTAT Arterial Blood Gas pH 7.39 (7.35-7.45); iSTAT Arterial Blood Gas pO2 73 mmHg (80-95); iSTAT Carbon Dioxide 22 mmol/L (24-31); iSTAT Hematocrit 34 % (42-52); iSTAT Hemoglobin 11.6 g/dl (14.0-18.0); iSTAT Potassium 3.5 mmol/L (3.3-5.0); iSTAT Sodium 140 mmol/L (135-144)
[2022-02-18] MEDS ORDERED: cefTRIAXone SODIUM 2,000 MG/70 ML BAG IV STA (09:07)
[2022-02-18] MEDS ORDERED: AMPICILLIN 2,000 MG in SODIUM CHLOR 0.9% AD-VAN 100 ML IV STA (09:08)
[2022-02-18] MEDS ORDERED: VANCOMYCIN HCL 2,250 MG in SODIUM CHLORIDE 0.9% 500 ML IV STA (09:09)
[2022-02-18] MEDS ORDERED: ACYCLOVIR SOD IV ONE (09:30)
[2022-02-18] MEDS ORDERED: DEXTROSE 5% IV ONE (09:30)
[2022-02-18] MEDS ORDERED: dexAMETHasone 14 MG in DEXTROSE 5% 25 ML IV STA (09:39)
[2022-02-18] MEDS ORDERED: DOXYCYCLINE HYCLATE 100 MG in DEXTROSE 5% 100 ML IV SCH (10:00)
--- NOTE | 2022-02-18 10:30 | CT Scan Report ---
CT ANGIOGRAM OF THE CHEST CLINICAL HISTORY: Change in mental status. Malaise. Dyspnea and hypoxia. Cough. COMPARISON STUDY: Chest x-ray dated 02/18/2022. TECHNIQUE: Following the IV administration of 111 cc of Optiray 320, CT angiogram of the chest was pe rformed from the upper abdomen to the thoracic inlet utilizing the pulmonary embolus protocol. Images are reviewed in the axial, sagittal, and coronal planes. 3-D MIPS images are created and assessed. I V contrast was administered without complication. A dose lowering technique was utilized adhering to the principles of ALARA. The examination is degraded by motion artifact. There is also streak artifa ct from the arms which could not be elevated above the chest. CT DOSE: 683.65 mGy.cm FINDINGS: Thyroid: Imaged portions of the thyroid gland are normal in size and attenuation. Thoracic aorta: There is mild atherosclerotic calcification of the thoracic aorta, which is normal in caliber and demonstrates standard 3-vessel arch anatomy. No dissection is seen. Pulmonary vasculature: The pulmonary trunk is normal in caliber. There are no filling defects identif ied in main, lobar, or segmental pulmonary branches to suggest pulmonary embolus. Evaluation of the p eripheral branches is degraded by streak and motion artifact. Heart: The heart is mildly enlarged and without pericardial effusion. There are coronary artery calci fications. Lungs and pleural spaces: Evaluation of the lung parenchyma is degraded by motion artifact. Secretion s are noted in the trachea. Dependent airspace consolidation is seen throughout both lungs, greatest in the lower lobes. There are small pleural effusions. No pneumothorax is seen. Mediastinum: There is no mediastinal lymphadenopathy. Caro: Clear. Axillae: There is no axillary lymphadenopathy. Upper abdomen: There is a ypykz-bv-mzhzdkql hiatal hernia. Partially visualized upper abdominal visce ra is otherwise grossly unremarkable. Skeletal structures: No lytic or blastic bony lesions are seen. IMPRESSION: 1. Streak and motion compromised examination. 2. There is no evidence of pulmonary embolus in the main, lobar, or segmental pulmonary arteries. Saskia luation of the peripheral branches is degraded by motion artifact. 3. Extensive dependent airspace consolidation is seen throughout both lungs, greatest in the lower lo bes. Correlate clinically for evidence of pneumonia/aspiration pneumonitis. Radiographic follow-up to resolution is recommended. Follow-up should include both PA and lateral views. 4. Small pleural effusions. 5. Mild cardiomegaly. 6. Additional findings as above. ACT 112: Negative or not required by law. Electronically signed by: Luis Graham M.D. 02/18/2022 10:28 AM
--- NOTE | 2022-02-18 10:41 | Anesthesiology Consultation ---
Date of Service February 18, 2022 Assessment & Plan (1) Encounter for pre-operative examination: Chart Review Chart Review: Acceptable Risk for Surgery and Patient NOT seen in Pre Admission Testing Consulted to assist with lumbar puncture. Neurology and radiology unable to perform per report. I will plan on doing lateral LP with hospitalist involvement. Consults Requested none History Height/Weight Height: 5 ft 10 in Weight: 92.7 kg Allergies Allergy/AdvReac Type Severity Reaction Status Date / Time No Known Allergies Allergy Verified 12/07/21 07:59 Medications Home Medications Medication Instructions Recorded Confirmed Last Taken calcium carbonate 600 mg calcium 600 mg PO QDL 04/16/18 12/07/21 01/27/19 08:00 (1,500 mg) tablet (Calcium) cholecalciferol (vitamin D3) 50 2,000 unit PO QDL 04/16/18 12/07/21 01/27/19 08:00 mcg (2,000 unit) tablet (Vitamin D3) vitamin E 268 mg (400 unit) capsule 400 units PO QDL 09/07/18 12/07/21 01/27/19 08:00 ibuprofen 200 mg tablet 400 mg PO DAILY PRN Pain 01/21/19 12/07/21 01/27/19 08:00 naproxen sodium 220 mg tablet 220 mg PO DAILY PRN Pain 01/21/19 12/07/21 01/27/19 08:00 (Aleve) omeprazole 20 mg capsule,delayed 20 mg PO DAILY PRN GERD #30 caps 10/26/20 12/07/21 Unknown release bicalutamide 50 mg tablet 50 mg PO DAILY 05/26/21 12/07/21 Unknown gabapentin 300 mg capsule 300 mg PO DAILY #30 caps 11/30/21 12/07/21 Unknown atorvastatin 20 mg tablet 20 mg PO QAM #90 tabs 02/14/22 Unknown Past Medical History Medical History (Updated 02/18/22 @ 10:39 by Karl Pascal MD) Acute alteration in mental status BPH (benign prostatic hyperplasia) Cervical herniated disc History of brachytherapy Hx of colonic polyps Hx of skin cancer, basal cell Hyperlipidemia Lumbar facet joint syndrome Neck pain with occasional numbness/tingling in right arm Neurogenic claudication due to lumbar spinal stenosis Osteoarthritis Osteoporosis Prostate cancer Radiation, brachytherapy and lupron injections Exercise / Class Metabolic Activity II 4-5 Yardwork/Stairs/Walk up hill Past Family History Family History Father , age 88 old age PMH prostate ca Prostate cancer Mother , age 88 old age Dementia Sister No problems noted. Brother Controlled type 2 diabetes mellitus Brother No problems noted. Brother No problems noted. Brother No problems noted. Brother , age 13 rheumatic heart disease No problems noted. Denies family history of Ovarian cancer Myocardial infarction Breast cancer Colorectal cancer Past Surgical History Surgical History H/O: vasectomy History of appendectomy History of cervical spinal surgery discectomy (1992) History of colonoscopy History of cystoscopy S/P left knee arthroscopy S/P Mohs surgery for basal cell carcinoma FACE Social History Smoking Status: Never smoker Hx Alcohol Use: Yes Alcohol type: beer, wine and hard liquor alcohol intake frequency: a few times a week Hx Substance Use: No substance use type: does not use Physical Exam Vital Signs Last Vital Signs Temp 39.0 C H 02/18/22 11:00 Pulse 119 H 02/18/22 11:00 Resp 20 02/18/22 11:00 BP 109/61 02/18/22 11:00 Pulse Ox 91 02/18/22 11:00 O2 Del Method 02/18/22 11:00 O2 Flow Rate 2 02/18/22 11:00 Testing Laboratory Results 02/18/22 05:22 02/18/22 05:22 PT 10.5 Seconds (9.0-12.0) 02/18/22 05:22 INR 1.0 (0.9-1.1) 02/18/22 05:22 APTT 21.4 Seconds (21.0-31.0) 02/18/22 05:22 Urine Color Yellow 02/18/22 06:28 Urine Appearance Clear (Clear) 02/18/22 06:28 Urine pH 7.0 (4.5-7.5) 02/18/22 06:28 Ur Specific [place] > 1.045 (1.000-1.030) H 02/18/22 06:28 Urine Protein 1+ (Negative) H 02/18/22 06:28 Urine Glucose (UA) Negative (Negative) 02/18/22 06:28 Urine Ketones Negative (Negative) 02/18/22 06:28 Urine Nitrite Negative (Negative) 02/18/22 06:28 Ur Leukocyte Esterase Negative (Negative) 02/18/22 06:28 Urine WBC (Auto) 1-5 /hpf (0-5) 02/18/22 06:28 Urine RBC (Auto) 0-4 /hpf (0-4) 02/18/22 06:28 U Hyaline Cast (Auto) 5-10 /lpf (0-5) H 02/18/22 06:28 U Epithel Cells (Auto) 5-10 /lpf (0-5) H 02/18/22 06:28 Urine Bacteria (Auto) Negative (Negative) 02/18/22 06:28 Blood Type O Positive 02/18/22 05:22 Antibody Screen NEGATIVE 02/18/22 05:22 02/18/22 05:28 POC Glucose (other) 182 H Electrocardiogram Date: 02/18/22 Findings: + NSR @ (87) NSR. Normal ECG. Other Testing CT scan chest 02/18/22: IMPRESSION: 1. Streak and motion compromised examination. 2. There is no evidence of pulmonary embolus in the main, lobar, or segmental pulmonary arteries. Evaluation of the peripheral branches is degraded by motion artifact. 3. Extensive dependent airspace consolidation is seen throughout both lungs, greatest in the lower lobes. Correlate clinically for evidence of pneumo bianca/aspiration pneumonitis. Radiographic follow-up to resolution is recommended. Follow-up should include both PA and lateral views. 4. Small pleural effusions. 5. Mild cardiomegaly. 6. Additional findings as above. MRI brain: Brain parenchyma: There is minimal microangiopathic change. There is no hemorrhage or mass effect. There is no restricted diffusion to suggest acute ischemia. Ferreira-white matter differentiation is preserved. No extra-axial fluid collection is seen. The cerebellar tonsils are normal in configuration. Ventricles, sulci, and cisterns: Normal in configuration. Pituitary and sella: Unremarkable. Intracranial vasculature: Normal flow voids are maintained at the skull base. Orbits: The bony orbits are grossly intact. Orbital contents are normal in appearance. Sinuses and mastoids: There is fluid within sphenoid sinuses. The remaining paranasal sinuses are clear. The mastoid air cells are well pneumatized. Calvarium: Unremarkable. Cervical cord: Partially visualized cervical spinal cord is normal in morphology and signal intensity. IMPRESSION: No acute intracranial abnormality is identified noting a severely motion compromised examination. This degrades diagnostic utility CT head: IMPRESSION: 1. There is no hemorrhage, mass effect, or evidence of acute territorial ischemia by CT criteria. 2. Unremarkable CT angiogram of the brain. 3. Unremarkable CT angiogram of the neck..
[2022-02-18] MEDS ORDERED: ONDANSETRON INJ 2 MG/ML 2 ML VIAL IV PRN (11:15)
[2022-02-18] MEDS ORDERED: VANCOMYCIN CONSULT ACTIVE PRN (11:15)
[2022-02-18] MEDS ORDERED: ACETAMINOPHEN 1,000 MG/100 ML VIAL IV PRN (11:20)
--- NOTE | 2022-02-18 11:35 | Electroencephalogram ---
EEG Procedure Note Date of Service February 18, 2022 Start / End Times Start Time: 933 End Time: [address] Snow History 67-year-old history of acute encephalopathy, question seizures Home Medication List Medication Instructions Recorded Confirmed Type calcium carbonate 600 mg calcium 600 mg PO QDL 04/16/18 12/07/21 History (1,500 mg) tablet (Calcium) cholecalciferol (vitamin D3) 50 2,000 unit PO QDL 04/16/18 12/07/21 History mcg (2,000 unit) tablet (Vitamin D3) vitamin E 268 mg (400 unit) capsule 400 units PO QDL 09/07/18 12/07/21 History ibuprofen 200 mg tablet 400 mg PO DAILY PRN Pain 01/21/19 12/07/21 History naproxen sodium 220 mg tablet 220 mg PO DAILY PRN Pain 01/21/19 12/07/21 History (Aleve) omeprazole 20 mg capsule,delayed 20 mg PO DAILY PRN GERD #30 caps 10/26/20 12/07/21 Rx release bicalutamide 50 mg tablet 50 mg PO DAILY 05/26/21 12/07/21 History gabapentin 300 mg capsule 300 mg PO DAILY #30 caps 11/30/21 12/07/21 Rx atorvastatin 20 mg tablet 20 mg PO QAM #90 tabs 02/14/22 Rx Inpatient Medication List Discontinued Medications Sodium Chloride (Nss 1000ml) 1,000 mls @ 999 mls/hr IV .Q1H1M ONE Stop: 02/18/22 06:52 Last Infusion: 02/18/22 06:54 Dose: 0 mls/hr Documented By: Admin: 02/18/22 05:59 Dose: 999 mls/hr Documented By: AYANNA Piperacillin Sod/Tazobactam Sod (Zosyn) 4.5 gm in 120 mls @ 240 mls/hr IV NOW ONE Stop: 02/18/22 06:31 Last Infusion: 02/18/22 08:54 Dose: 0 mls/hr Documented By: Admin: 02/18/22 08:08 Dose: 240 mls/hr Documented By: ALLY Metronidazole (Flagyl) 500 mg in 100 mls @ 100 mls/hr IV NOW STA Stop: 02/18/22 07:01 Last Infusion: 02/18/22 10:23 Dose: 0 mls/hr Documented By: Admin: 02/18/22 08:27 Dose: 100 mls/hr Documented By: ALLY Levetiracetam 1,000 mg/ Sodium (Chloride) 110 mls @ 440 mls/hr IV NOW STA Stop: 02/18/22 07:33 Last Infusion: 02/18/22 08:32 Dose: 0 mls/hr Documented By: Admin: 02/18/22 08:04 Dose: 440 mls/hr Documented By: ALLY Sodium Chloride (Nss 1000ml) 2,000 mls @ 999 mls/hr IV .Q2H1M ONE Stop: 02/18/22 10:08 Last Infusion: 02/18/22 10:23 Dose: 0 mls/hr Documented By: Admin: 02/18/22 08:33 Dose: 999 mls/hr Documented By: ALLY Levetiracetam 500 mg/ Sodium (Chloride) 105 mls @ 440 mls/hr IV NOW STA Stop: 02/18/22 08:45 Last Infusion: 02/18/22 09:23 Dose: 0 mls/hr Documented By: Admin: 02/18/22 08:54 Dose: 440 mls/hr Documented By: ALLY Ceftriaxone Sodium (Rocephin) 2,000 mg in 70 mls @ 140 mls/hr IV NOW STA Stop: 02/18/22 09:36 Last Infusion: 02/18/22 09:57 Dose: 0 mls/hr Documented By: Admin: 02/18/22 09:24 Dose: 140 mls/hr Documented By: ALLY Ampicillin Sodium 2,000 mg/ (Sodium Chloride) 100 mls @ 200 mls/hr IV NOW STA Stop: 02/18/22 09:37 Last Admin: 02/18/22 10:27 Dose: 200 mls/hr Documented By: ALLY Acyclovir Sodium 920 mg/ (Dextrose) 268.4 mls @ 250 mls/hr IV NOW ONE Stop: 02/18/22 10:34 Last Admin: 02/18/22 10:27 Dose: 250 mls/hr Documented By: ALLY Dexamethasone 14 mg/ Dextrose 28.5 mls @ 114 mls/hr IV NOW STA Stop: 02/18/22 09:53 Last Infusion: 02/18/22 10:23 Dose: 0 mls/hr Documented By: Admin: 02/18/22 09:57 Dose: 114 mls/hr Documented By: ALLY Ioversol (Optiray 320 500ml) 125 ml IV ONCE ONE Stop: 02/18/22 05:57 Last Admin: 02/18/22 05:56 Dose: 106 ml Documented By: ANABEL Ioversol (Optiray 320 500ml) 111 ml IV ONCE ONE Stop: 02/18/22 10:23 Last Admin: 02/18/22 10:22 Dose: 111 ml Documented By: TONY Lorazepam (Lorazepam 1 Mg/1 Ml Syr) 1 mg IV NOW STA; Protocol Stop: 02/18/22 06:49 Last Admin: 02/18/22 06:51 Dose: 1 mg Documented By: AYANNA Lorazepam (Lorazepam 1 Mg/1 Ml Syr) 1 mg IV NOW STA; Protocol Stop: 02/18/22 06:58 Last Admin: 02/18/22 06:59 Dose: 1 mg Documented By: AYANNA Miscellaneous (Rapid Sequence Induction Bag) Confirm Administered Dose 1 each .ROUTE .STK-MED ONE Stop: 02/18/22 05:01 Last Admin: 02/18/22 10:24 Dose: Not Given Documented By: ALLY Ondansetron HCl (Ondansetron Inj 2 Mg/Ml 2 Ml Vial) 4 mg IV NOW STA Stop: 02/18/22 05:53 Last Admin: 02/18/22 06:00 Dose: 4 mg Documented By: AYANNA Description This is a 21 electrode EEG with a single channel dedicated to limited EKG. The electrodes were placed in accordance with the International 10-20 system. Interpretation The predominant background activity consists of an irregular 10 Hz activity, of up to 30 mV in amplitude,seen symmetrically distributed over the posterior head regions bilaterally. superimposed on this background activity of a waxing and waning nature was some higher amplitude slower activity anywhere from 4-8 hertz admixed diffusely. Photic stimulation was performed and elicited no change in the background activity and no abnormal responses were seen. Hyperventilation was not performed. A considerable amount of muscle and movement artifact activity contaminated the recording, hinder interpretation from time to time but not to any significant degree overall. Throughout the recording, no focal abnormalities or potentially epileptogenic discharges are seen. In particular, there was no focal slowing in the temporal lobes and no periodic lateralizing epileptiform discharges. The patient did not enter drowsiness or sleep In summary, this EEG showed some generalized slowing of a mild nature, consistent with an encephalopathy. There were no focal abnormalities or potentially epileptogenic discharges seen. Clinical Correlation The mild slowing would be consistent with a mild encephalopathy which could be due to a wide variety of causes clinical correlation is required..
--- NOTE | 2022-02-18 12:05 | Anesthesiology Progress Note ---
Date of Service February 18, 2022 Assessment & Plan (1) Encounter for pre-operative examination: Plan: LUMBAR PUNCTURE Date and time of procedure: Indication: Altered mental status. R/o infection. Consent: Informed consent obtained from designated proxy. The inherent risks, expected benefits, treatment alternatives, as well as the technical aspects of the procedure were discussed with the patient's and a full explanation was given. Time Out: A time-out was performed verifying correct patient with two identifiers, procedure, site, positioning, and special equipment (if needed). Monitors Attached: EKG BP Pulse Oximetry CO2 NO PREMEDICATION Position: Right Lateral Prep: Duraprep x2 Sterile Drape Sterile procedures used Site: Midline Level L[4-5] Local Skin Infiltration: 2[] ml 1% lidocaine []ml 2% lidocaine Neuraxial Technique: Lumbar puncture Needle: 3.5 inch 20G spinal needle (see kit for full details). CLEAR CSF FLUID. Did not do opening pressure but CSF slowly dripped during procedure so did not appear that opening pressure was extremely elevated. 2-3ml of CSF was obtained in four numbered vials in sterile fashion. Vials handed off to nursing staff and they were appropriately labeled and sent to lab for te sting. No bleeding at needle insertion site and patient tolerated the procedure without any difficulty. Attempts: 1 Parasthesias: No CSF: Yes Blood: No Post Procedure: Patient tolerated the procedure well without apparent complications. Present on Admission?: No Admission and Anticipated Discharge Date Admission Date: February 18, 2022 Subjective Patient with complicated ER/hospital course thus far (full details in record). I was asked by hospitalist service to perform lumbar puncture as other providers unable to do so. Hospitalist service stated LP necessary per neurology as this would help guide his management. Patient appeared calm but somnolent. I spoke at length with patient's and explained risks/benefits of the procedure. All questions were answered and consent was obtained. Please see below for procedure details. Procedure without any difficulty and he remained hemodynamically stable throughout. Physical Exam Vital Signs: Last Vital Signs Temp 39.0 C H 02/18/22 11:00 Pulse 119 H 02/18/22 11:00 Resp 20 02/18/22 11:00 BP 109/61 02/18/22 11:00 Pulse Ox 91 02/18/22 11:00 O2 Del Method 02/18/22 11:00 O2 Flow Rate 2 11/11/22 11:00 Constitutional: + altered mental status and + lethargic ENMT: Mouth: no TMJ abnormality Thyromental Distance: > or= 3.5 Finger Breadths Mallampati Class: Other (unable to assess as patient cannot participate in exam) Neck: normal visual inspection Respiratory: normal respiratory effort Auscultation: lungs clear to auscultation bilaterally Cardiovascular: Rate/Rhythm: regular rhythm and + tachycardic Musculoskeletal: Spine: normal cervical ROM Psychiatric: Orientation: + not alert and + not oriented x 3
[2022-02-18] MEDS ORDERED: Flu Vaccine-High Dose (Fluzone-HD) PF 65+ 0.7mL SYR IM ONE (13:00)
[2022-02-18 13:07] LABS: Appearance CSF Clear; CSF Count Tube # 3; CSF Xanthrochromic No xanthochromia; Color CSF Colorless
[2022-02-18 13:09] LABS: Lyme Ab IgG w/WB Rflx Negative (Negative); Lyme Ab IgM w/WB Rflx Negative (Negative)
[2022-02-18 13:11] LABS: Total Protein CSF 48.3 mg/dl (15-45)
--- NOTE | 2022-02-18 13:48 | History & Physical Report ---
Date of Service February 18, 2022 Assessment & Plan (1) Infectious encephalopathy: Plan: Presumed cause of his altered mental status, though not certain. Seizure still possible, though EEG was without concerning findings. No known toxic ingestions. - Treating for encephalitis/meningitis treatment: * Vancomycin * Ceftriaxone * Ampicillin * Acyclovir * Dexamethasone -> Will closely follow [employer] CSF panel - Follow blood cultures - Neurology consulted; will consult ID for further thoughts (2) Aspiration pneumonia: Plan: Believe this to be due to his altered mental status, not etiology of. - Presently should be covered by ceftriaxone; typical bacteria now mostly Gram(- ) rather than anaerobic. Can adjust as needed. - Supplemental O2 as needed (3) Prostate cancer: Plan: Follows with [facility]. - Continue bicalutamide as able (4) Hyperlipidemia: Plan: - Continue statin as able (5) GERD (gastroesophageal reflux disease): Plan: - Hold omeprazole - H2 majo IV while not able to take PO (6) DVT prophylaxis: Plan: Lovenox 40 mg SQ daily FULL CODE per at bedside Admission and Anticipated Discharge Date Admission Date: February 18, 2022 History of Present Illness Primary Care Provider: KERRIE Rueda 67 year old M w/ hx of prostate cancer who presents with altered mental status. The patient is obtunded and cannot provide any history, so the history is gotten solely from his and records. Per , he was not feeling well yesterday evening, mostly reporting nausea and some stomach cramping. Around 11pm, they went to bed, and reports he was up at some point overnight. Early in the morning (~5am or so?), she heard a crash in the bathroom and found him on the ground, incontinent of stool. He was also not moving his right side very well and reportedly had a left-eye gaze deviation. EMS was called, and his BP was in the 70s systolic, though it came up with a liter of fluid. In the ER, stroke pathway was initiated, and he got a CT head, CTA head/neck, and MRI brain. None of these showed any acute findings. He then had a fever to 38.8, and pathway was started to work up encephalitis/meningitis. His reports that he is out in the [place] a lot and frequently picks ticks off himself. However, she does not know of any recent tick-bites. Allergies Allergy/AdvReac Type Severity Reaction Status Date / Time No Known Allergies Allergy Verified 12/07/21 07:59 Home Medications Medication Instructions Recorded Confirmed Type calcium carbonate 600 mg calcium 600 mg PO QDL 04/16/18 12/07/21 History (1,500 mg) tablet (Calcium) cholecalciferol (vitamin D3) 50 2,000 unit PO QDL 04/16/18 12/07/21 History mcg (2,000 unit) tablet (Vitamin D3) vitamin E 268 mg (400 unit) capsule 400 units PO QDL 09/07/18 12/07/21 History ibuprofen 200 mg tablet 400 mg PO DAILY PRN Pain 01/21/19 12/07/21 History naproxen sodium 220 mg tablet 220 mg PO DAILY PRN Pain 01/21/19 12/07/21 History (Aleve) omeprazole 20 mg capsule,delayed 20 mg PO DAILY PRN GERD #30 caps 10/26/20 12/07/21 Rx release bicalutamide 50 mg tablet 50 mg PO DAILY 05/26/21 12/07/21 History gabapentin 300 mg capsule 300 mg PO DAILY #30 caps 11/30/21 12/07/21 Rx atorvastatin 20 mg tablet 20 mg PO QAM #90 tabs 02/14/22 Rx Past Med/Surg History Medical History Acute alteration in mental status BPH (benign prostatic hyperplasia) Cervical herniated disc History of brachytherapy Hx of colonic polyps Hx of skin cancer, basal cell Hyperlipidemia Lumbar facet joint syndrome Neck pain with occasional numbness/tingling in right arm Neurogenic claudication due to lumbar spinal stenosis Osteoarthritis Osteoporosis Prostate cancer Radiation, brachytherapy and lupron injections Surgical History H/O: vasectomy History of appendectomy History of cervical spinal surgery discectomy (1992) History of colonoscopy History of cystoscopy S/P left knee arthroscopy S/P Mohs surgery for basal cell carcinoma FACE Family History Father , age 88 old age PMH prostate ca Prostate cancer Mother , age 88 old age Dementia Sister No problems noted. Brother Controlled type 2 diabetes mellitus Brother No problems noted. Brother No problems noted. Brother No problems noted. Brother , age 13 rheumatic heart disease No problems noted. 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 Other Information That Helps Us Care for You: No Feels Safe at Home: Yes Safety Concerns: Feels Safe At This Time Childhood Exposure to Second-Hand Smoke: No caffeine: Yes (coffee) Dental Care, Regularly: Yes Physical Activity Frequency: Daily Seatbelt Use: always Sunscreen Use: Yes Assistive Devices: None Review of Systems Review of Systems: Unobtainable due to cognitive status and Unobtainable due to reduced consciousness Physical Exam Constitutional: WD/WN, vitals as above + acute distress, + disheveled and + in distress Eyes: no eyelid abnormality and no conjunctival abnormality ENMT: external ear and nose normal, oropharynx normal Neck: trachea midline, no thyromegaly normal visual inspection Respiratory: + labored breathing, + uses accessory muscles, + tachypneic and + grunting; no respiratory distress and no cough Auscultation: lungs clear to auscultation bilaterally Cardiovascular: Rate/Rhythm: regular rate and + tachycardic Gastrointestinal (Abdomen): Inspection/Auscultation: abdomen normal to inspection; abdomen not distended Percussion/Palpation: abdomen soft; abdomen nontender, no guarding and abdomen not rigid Musculoskeletal: No obvious deformities Skin: no rashes, warm and dry Neurologic: moves all extremities (Right side improving) and + obtunded; + not awake Psychiatric: Orientation: + not alert and + not oriented to person Results & Data Results & Data (MN) Vital Signs (Past 12 Hours) Vital Signs Temp Pulse Pulse Resp BP BP Pulse Ox 02/18/22 13:21 37.6 C H 02/18/22 11:00 39.0 C H 119 H 20 109/61 91 02/18/22 10:30 104 H 24 100 02/18/22 10:30 114/64 02/18/22 10:22 113 H 21 100 02/18/22 10:22 125/73 02/18/22 10:04 122/62 02/18/22 10:04 118 H 23 99 02/18/22 10:00 116 H 19 99 02/18/22 10:00 84/47 L 02/18/22 09:46 124 H 23 99 02/18/22 09:46 118/65 02/18/22 09:45 125 H 18 98 02/18/22 09:30 110 H 24 99 02/18/22 09:30 110/67 02/18/22 09:15 133 H 25 H 97 02/18/22 09:15 124/74 02/18/22 09:00 38.8 C H 135 H 23 124/83 96 02/18/22 09:00 124/83 02/18/22 08:46 116/71 02/18/22 08:46 133 H 23 91 02/18/22 08:45 129 H 29 H 96 02/18/22 08:30 130 H 28 H 94 02/18/22 08:30 106/91 02/18/22 08:15 136 H 26 H 93 02/18/22 08:15 156/66 H 02/18/22 08:04 135/79 02/18/22 08:04 135 H 23 90 02/18/22 08:02 87/68 L 02/18/22 08:02 134 H 22 91 02/18/22 08:00 138 H 23 91 02/18/22 07:54 133 H 21 90 02/18/22 08:11 130 H 24 135/79 92 02/18/22 07:01 107 H 14 121/60 94 02/18/22 06:45 100 H 20 103/76 87 L 02/18/22 06:30 106 H 26 H 91 02/18/22 06:30 111/68 02/18/22 06:15 101 H 18 94 02/18/22 06:15 115/65 02/18/22 06:00 94 H 20 95 02/18/22 06:00 106/63 02/18/22 05:55 93 H 17 88 L 02/18/22 05:47 95 H 16 95 02/18/22 05:47 88/59 L 02/18/22 05:46 97 H 15 88/59 L 97 02/18/22 05:45 101 H 14 91/63 L 95 02/18/22 05:41 93 H 16 99 02/18/22 05:39 84 18 94 02/18/22 05:15 88 16 93/53 L 97 02/18/22 05:12 89 L 02/18/22 05:16 88 20 93/58 L 96 O2 Del Method O2 Flow Rate 02/18/22 13:21 02/18/22 11:00 Oxymask 2 02/18/22 10:30 Oxymask 10 02/18/22 10:30 02/18/22 10:22 Oxymask 10 02/18/22 10:22 02/18/22 10:04 02/18/22 10:04 Oxymask 02/18/22 10:00 Oxymask 10 02/18/22 10:00 02/18/22 09:46 Oxymask 10 02/18/22 09:46 02/18/22 09:45 Oxymask 10 02/18/22 09:30 Oxymask 10 02/18/22 09:30 02/18/22 09:15 Oxymask 10 02/18/22 09:15 02/18/22 09:00 Oxymask 10 02/18/22 09:00 02/18/22 08:46 02/18/22 08:46 Non-rebreather 15 02/18/22 08:45 Non-rebreather 15 02/18/22 08:30 Non-rebreather 15 02/18/22 08:30 02/18/22 08:15 Non-rebreather 15 02/18/22 08:15 02/18/22 08:04 02/18/22 08:04 Non-rebreather 5 02/18/22 08:02 02/18/22 08:02 Non-rebreather 15 02/18/22 08:00 Non-rebreather 15 02/18/22 07:54 Non-rebreather 15 02/18/22 08:11 Non-rebreather 15 02/18/22 07:01 02/18/22 06:45 02/18/22 06:30 02/18/22 06:30 02/18/22 06:15 02/18/22 06:15 02/18/22 06:00 02/18/22 06:00 02/18/22 05:55 02/18/22 05:47 02/18/22 05:47 02/18/22 05:46 02/18/22 05:45 02/18/22 05:41 02/18/22 05:39 02/18/22 05:15 02/18/22 05:12 02/18/22 05:16 Non-rebreather 15 Code Status & VTE Plan VTE Prophylaxis Plan VTE Prophylaxis will be ordered: Yes PG Care Time/CCT Total # of Minutes Spent Total Time Spent with Patient: Total time spent is greater than 50% in coordination of care (as documented) at patient's floor/unit and/or counseling patient: Coding Level of Care Code 48284 Initial Inpt Care Lvl 3 Diagnoses Infectious encephalopathy G93.49; B99.9 Aspiration pneumonia J69.0 Prostate cancer C61 Hyperlipidemia E78.5 GERD (gastroesophageal reflux disease) K21.9 DVT prophylaxis Z29.9
--- NOTE | 2022-02-18 13:50 | Neurology Consultation ---
Date of Consultation February 18, 2022 Assessment & Plan (1) Acute encephalopathy: (2) Fever: (3) Right hemiparesis: (4) Gaze preference: Plan This patient has the acute onset of encephalopathy of uncertain cause. He had an event where he passed out at his chin on the top. I believe he must of had a seizure but I do not know was primary or secondary. He has no history to suggest primary seizures however. He had left gaze preference with right hemiplegia initially. This would point to a large left hemispheric stroke or a smaller brainstem stroke. MRI (although admittedly suboptimal due to movement ) did not show any obvious stroke. CT angiography was unremarkable and labs were unremarkable. He did have a fever but he has no meningeal signs or elevated white count. LP so far shows no evidence of infection. The slightly elevated protein is nonspecific. This may all be post ictal. A Myles's paralysis could imitate a stroke. I have seen a few individuals with a fever post seizure without obvious infection. Over the course of my interview and exam patient went from not responding well to following one-step commands and having no focal weakness. Recommendations: 1. awaiting the rest of the LP results. Continue antibiotics and acyclovir empirically until more results come back. 2. 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 3. depending on his clinical course, I may repeat an MRI of the brain tomorrow ( when he is calmer and able to be more still) 4. I will follow Overall, I spent a total of 90 minutes with this case including review of records, review of MRI films, direct evaluation the patient at bedside, and discussion of the case with the patient and his at bedside, RN at bedside, and Dr. Snow including differential diagnosis and treatment options. History of Present Illness Reason for Consultation: Patient is a 67-year-old, who I was asked to see at the request of Dr. Snow, for neurologic consultation regarding acute encephalopathy and fever. Requesting Physician: Dr. Snow Attending Physician: Riaz Snow MD History of Present Illness patient's is present at bedside and she adds to the history as the patient cannot give any history at this time. Patient has a history of high-grade prostate cancer treated, post radiation therapy, now on bicalutamide followed by oncology. He is fairly stable. He also has dyslipidemia, gastroesophageal reflux disease and chronic low back pain from lumbar spinal stenosis seeing pain management. The patient has not had any exposure to toxins or chemicals, and he has not been ill recently. In the evening of February 17, he told his that he did not feel well. He had some nausea and malaise. They went to bed at 2300. the patient's was woken up around 0400 when she heard a loud noise. She went into the bathr oom and the patient was on the floor. He apparently had hit his chin on the Juan passing out found on the floor unresponsive. EMS arrived and it was noted that his gaze was to the left and he was not moving his right side. He had multiple episodes of vomiting and his blood pressure was low. He arrived to the emergency room February 18 at 5:16 a.m. with a pulse of 88 and regular, respiratory rate 20, blood pressure 93/58, and O2 saturation 96%. On exam he seems somewhat awake but he was nonverbal and had left lateral gaze. He was confused and somewhat combative eventually. CBC showed mild anemia and Chem profile was unremarkable. Glucose was 187. CT scan of the head was unremarkable. CT angiography of the head neck were unremarkable with no vascular stenoses. Chest x-ray was clear. An MRI of the brain was obtained with the patient was confused and doing a lot of moving hindering precise interpretation of the study. There did not seem to be any obvious stroke on diffusion imaging. It was noted the patient had a fever up to 102 (although the white count was not elevated). An EEG was obtained and showed mild generalized slowing with no focal abnormalities particularly in the temporal lobes, and no potentially epileptogenic discharges or PLEDs LP was performed and no opening pressure was obtained although the fluid trapped out slowly according to the anesthesiologist Who did the procedure. The fluid was clear and colorless and there was no xanthochromia. There were 0 white cells and 0 red cells. Glucose was 87 and total protein was 48 ( normal 15-45). Biofire and the rest of the CSF studies are pending. When I saw the patient around 1300, he was not following commands. He was laying in bed shaking his head gently side to side. He was moving all 4 limbs and putting his hands behind his head. When I talked to him he did briefly make eye contact and would try to speak but no intelligible words came out. Later on in the exam ( closer to 1330), he actually would follow one-step commands and moved all 4 limbs equally. He had no gaze preference and he seemed to indicate that he had a headache ( I heard the word "yes"). He also said his name Lai. Allergies Allergy/AdvReac Type Severity Reaction Status Date / Time No Known Allergies Allergy Verified 12/07/21 07:59 Home Medications Medication Instructions Recorded Confirmed Type calcium carbonate 600 mg calcium 600 mg PO QDL 04/16/18 12/07/21 History (1,500 mg) tablet (Calcium) cholecalciferol (vitamin D3) 50 2,000 unit PO QDL 04/16/18 12/07/21 History mcg (2,000 unit) tablet (Vitamin D3) vitamin E 268 mg (400 unit) capsule 400 units PO QDL 09/07/18 12/07/21 History ibuprofen 200 mg tablet 400 mg PO DAILY PRN Pain 01/21/19 12/07/21 History naproxen sodium 220 mg tablet 220 mg PO DAILY PRN Pain 01/21/19 12/07/21 History (Aleve) omeprazole 20 mg capsule,delayed 20 mg PO DAILY PRN GERD #30 caps 10/26/20 12/07/21 Rx release bicalutamide 50 mg tablet 50 mg PO DAILY 05/26/21 12/07/21 History gabapentin 300 mg capsule 300 mg PO DAILY #30 caps 11/30/21 12/07/21 Rx atorvastatin 20 mg tablet 20 mg PO QAM #90 tabs 02/14/22 Rx Patient History Medical History Acute alteration in mental status BPH (benign prostatic hyperplasia) Cervical herniated disc History of brachytherapy Hx of colonic polyps Hx of skin cancer, basal cell Hyperlipidemia Lumbar facet joint syndrome Neck pain with occasional numbness/tingling in right arm Neurogenic claudication due to lumbar spinal stenosis Osteoarthritis Osteoporosis Prostate cancer Radiation, brachytherapy and lupron injections Surgical History H/O: vasectomy History of appendectomy History of cervical spinal surgery discectomy (1992) History of colonoscopy History of cystoscopy S/P left knee arthroscopy S/P Mohs surgery for basal cell carcinoma FACE Family History Father , age 88 old age PMH prostate ca Prostate cancer Mother , age 88 old age Dementia Sister No problems noted. Brother Controlled type 2 diabetes mellitus Brother No problems noted. Brother No problems noted. Brother No problems noted. Brother , age 13 rheumatic heart disease No problems noted. 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 Exam (Neuro) Physical Exam: He is awake and will make eye contact. He will glance around the room. By the end of the examination he was following one-step commands by wiggling his toes and bring his arms out from behind his head. His speech is slurred /unintelligible although he is really trying to formulate words. Pupils are 3 mm bilaterally reactive to light. Extraocular eye muscles seemed intact without nystagmus. There is no facial droop and tongue was midline. Neck was supple in all directions. There were no tremors or abnormal involuntary movements although he did have some head shaking from side to side intermittently of a variable nature. Strength seems symmetrical in the limbs with a little bit of decreased tone in all 4 limbs. He withdrew equally in all 4 limbs to deep pain. Reflexes were 1/4 in the biceps triceps brachioradialis quadriceps and Achilles tendons bilaterally. Toes were downgoing plantar stimulation bilaterally. Results & Data ([facility]) Vital Signs (Past 12 Hours) Vital Signs Temp Pulse Pulse Resp BP BP Pulse Ox 02/18/22 13:21 37.6 C H 02/18/22 11:00 39.0 C H 119 H 20 109/61 91 02/18/22 10:30 104 H 24 100 02/18/22 10:30 114/64 02/18/22 10:22 113 H 21 100 02/18/22 10:22 125/73 02/18/22 10:04 122/62 02/18/22 10:04 118 H 23 99 02/18/22 10:00 116 H 19 99 02/18/22 10:00 84/47 L 02/18/22 09:46 124 H 23 99 02/18/22 09:46 118/65 02/18/22 09:45 125 H 18 98 02/18/22 09:30 110 H 24 99 02/18/22 09:30 110/67 02/18/22 09:15 133 H 25 H 97 02/18/22 09:15 124/74 02/18/22 09:00 38.8 C H 135 H 23 124/83 96 02/18/22 09:00 124/83 02/18/22 08:46 116/71 02/18/22 08:46 133 H 23 91 02/18/22 08:45 129 H 29 H 96 02/18/22 08:30 130 H 28 H 94 02/18/22 08:30 106/91 02/18/22 08:15 136 H 26 H 93 02/18/22 08:15 156/66 H 02/18/22 08:04 135/79 02/18/22 08:04 135 H 23 90 02/18/22 08:02 87/68 L 02/18/22 08:02 134 H 22 91 02/18/22 08:00 138 H 23 91 02/18/22 07:54 133 H 21 90 02/18/22 08:11 130 H 24 135/79 92 02/18/22 07:01 107 H 14 121/60 94 02/18/22 06:45 100 H 20 103/76 87 L 02/18/22 06:30 106 H 26 H 91 02/18/22 06:30 111/68 02/18/22 06:15 101 H 18 94 02/18/22 06:15 115/65 02/18/22 06:00 94 H 20 95 02/18/22 06:00 106/63 02/18/22 05:55 93 H 17 88 L 02/18/22 05:47 95 H 16 95 02/18/22 05:47 88/59 L 02/18/22 05:46 97 H 15 88/59 L 97 02/18/22 05:45 101 H 14 91/63 L 95 02/18/22 05:41 93 H 16 99 02/18/22 05:39 84 18 94 02/18/22 05:15 88 16 93/53 L 97 02/18/22 05:12 89 L 02/18/22 05:16 88 20 93/58 L 96 O2 Del Method O2 Flow Rate 02/18/22 13:21 02/18/22 11:00 Oxymask 2 02/18/22 10:30 Oxymask 10 02/18/22 10:30 02/18/22 10:22 Oxymask 10 02/18/22 10:22 02/18/22 10:04 02/18/22 10:04 Oxymask 02/18/22 10:00 Oxymask 10 02/18/22 10:00 02/18/22 09:46 Oxymask 10 02/18/22 09:46 02/18/22 09:45 Oxymask 10 02/18/22 09:30 Oxymask 10 02/18/22 09:30 02/18/22 09:15 Oxymask 10 02/18/22 09:15 02/18/22 09:00 Oxymask 10 02/18/22 09:00 02/18/22 08:46 02/18/22 08:46 Non-rebreather 15 02/18/22 08:45 Non-rebreather 15 02/18/22 08:30 Non-rebreather 15 02/18/22 08:30 02/18/22 08:15 Non-rebreather 15 02/18/22 08:15 02/18/22 08:04 02/18/22 08:04 Non-rebreather 5 02/18/22 08:02 02/18/22 08:02 Non-rebreather 15 02/18/22 08:00 Non-rebreather 15 02/18/22 07:54 Non-rebreather 15 02/18/22 08:11 Non-rebreather 15 02/18/22 07:01 02/18/22 06:45 02/18/22 06:30 02/18/22 06:30 02/18/22 06:15 02/18/22 06:15 02/18/22 06:00 02/18/22 06:00 02/18/22 05:55 02/18/22 05:47 02/18/22 05:47 02/18/22 05:46 02/18/22 05:45 02/18/22 05:41 02/18/22 05:39 02/18/22 05:15 02/18/22 05:12 02/18/22 05:16 Non-rebreather 15 PG Care Time/CCT Total # of Minutes Spent Total Time Spent with Patient: Total time spent is greater than 50% in coordination of care (as documented) at patient's floor/unit and/or counseling patient: Coding Level of Care Code 00291 Inpt Consult Level 5 Diagnoses Acute encephalopathy G93.40 Fever R50.9 Right hemiparesis G81.91 Gaze preference Time Spent (min) 90
[2022-02-18 13:56] LABS: Cryptococcus neoformans/ga PCR Not Detected (NotDetected); Cytomegalovirus PCR Not Detected (NotDetected); Enterovirus PCR Not Detected (NotDetected); Escherichia coli K1 PCR Not Detected (NotDetected); Haemophilius influenzae PCR Not Detected (NotDetected); Herpes Simplex Virus 1 PCR Not Detected (NotDetected); Herpes Simplex Virus 2 PCR Not Detected (NotDetected); Human Herpes Virus 6 PCR Not Detected (NotDetected); Human Parechovirus PCR Not Detected (NotDetected); Listeria monocytogenes PCR Not Detected (NotDetected); Neisseria meningitidis PCR Not Detected (NotDetected); Streptococcus agalactiae PCR Not Detected (NotDetected); Streptococcus pneumoniae PCR Not Detected (NotDetected); Varicella Zoster Virus PCR Not Detected (NotDetected)
--- NOTE | 2022-02-18 14:04 | Critical Care Consultation ---
Date of Consultation February 18, 2022 Assessment & Plan (1) Altered mental status: Neurology following. Stroke work-up thus far has been unrevealing. I would recommend an EEG and starting the patient on meningitis doses of antibiotics. LP would prove exceptionally difficult given his agitated delirium. Would recommend empiric treatment at this time. Agree with dexamethasone. (2) Aspiration pneumonia: Unclear if this is secondary to the altered mental status or the cause of his overarching sepsis and altered mental status. Agree with antibiotics as above. No pulmonary embolism seen. (3) Sepsis: Lactate is cleared. No evidence of hypotension. No indication for ICU transfer at this point. Recommend work-up for tickborne illnesses and starting the patient on doxycycline given his presentation. notes that he has had several ticks on him this past fall. Plan Critical care team to sign off. Please call with questions or if he requires ICU transfer. Thank you for the consultation. History of Present Illness Reason for Consultation: Acute encephalopathy and concern for airway compromise Attending Physician: Riaz Snow MD History of Present Illness 67-year-old male who was found by his confused overnight. He was evaluated by neurology and underwent a stroke protocol. Brain imaging was unremarkable. Labs generally unremarkable. When I evaluated the patient he was awake, but would not answer questions. He was thrashing about in his bed. He was tachycardic and mildly hypoxemic. I recommended the patient undergo a CT chest with contrast to evaluate for pulmonary embolism. No PE was discovered. He does have bibasilar infiltrates consistent with aspiration pneumonia/pneumonitis. His heart rate has improved with crystalloids. Blood pressure remained stable. He is currently requiring 2 L of oxygen via oxime mask to maintain saturations in the low 90s. Allergies Allergy/AdvReac Type Severity Reaction Status Date / Time No Known Allergies Allergy Verified 12/07/21 07:59 Home Medications Medication Instructions Recorded Confirmed Type calcium carbonate 600 mg calcium 600 mg PO QDL 04/16/18 12/07/21 History (1,500 mg) tablet (Calcium) cholecalciferol (vitamin D3) 50 2,000 unit PO QDL 04/16/18 12/07/21 History mcg (2,000 unit) tablet (Vitamin D3) vitamin E 268 mg (400 unit) capsule 400 units PO QDL 09/07/18 12/07/21 History ibuprofen 200 mg tablet 400 mg PO DAILY PRN Pain 01/21/19 12/07/21 History naproxen sodium 220 mg tablet 220 mg PO DAILY PRN Pain 01/21/19 12/07/21 History (Aleve) omeprazole 20 mg capsule,delayed 20 mg PO DAILY PRN GERD #30 caps 10/26/20 12/07/21 Rx release bicalutamide 50 mg tablet 50 mg PO DAILY 05/26/21 12/07/21 History gabapentin 300 mg capsule 300 mg PO DAILY #30 caps 11/30/21 12/07/21 Rx atorvastatin 20 mg tablet 20 mg PO QAM #90 tabs 02/14/22 Rx Patient History Medical History (Updated 02/18/22 @ 14:01 by Frank Flores MD) Acute alteration in mental status Altered mental status BPH (benign prostatic hyperplasia) Cervical herniated disc History of brachytherapy Hx of colonic polyps Hx of skin cancer, basal cell Hyperlipidemia Lumbar facet joint syndrome Neck pain with occasional numbness/tingling in right arm Neurogenic claudication due to lumbar spinal stenosis Osteoarthritis Osteoporosis Prostate cancer Radiation, brachytherapy and lupron injections Sepsis Surgical History H/O: vasectomy History of appendectomy History of cervical spinal surgery discectomy (1992) History of colonoscopy History of cystoscopy S/P left knee arthroscopy S/P Mohs surgery for basal cell carcinoma FACE Family History Father , age 88 old age PMH prostate ca Prostate cancer Mother , age 88 old age Dementia Sister No problems noted. Brother Controlled type 2 diabetes mellitus Brother No problems noted. Brother No problems noted. Brother No problems noted. Brother , age 13 rheumatic heart disease No problems noted. 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 Eyes: Pupils are equal round and reactive to light. Conjunctivae are normal. Anicteric sclera. Ears nose, mouth and throat: Mallampati class 2. Normal posterior oropharynx. Uvula is midline. Neck: Trachea is midline. Visual inspection is normal. Respiratory: Bibasilar diminishment. Mild tachypnea. Cardiovascular: Regular rate and rhythm. No murmurs. No edema. Gastrointestinal: Normal bowel sounds, soft, nontender and nondistended. No hepatosplenomegaly noted. Musculoskeletal: No cyanosis. Extremities intact. No cyanosis. Skin: No rashes, warm dry and intact. Neurologic: No obvious focal neurological deficits seen. Psychiatric: Agitated and does not follow commands. Results & Data Results & Data ([facility]) Vital Signs (Past 12 Hours) Vital Signs Temp Pulse Pulse Resp BP BP Pulse Ox 02/18/22 13:21 37.6 C H 02/18/22 11:00 39.0 C H 119 H 20 109/61 91 02/18/22 10:30 104 H 24 100 02/18/22 10:30 114/64 02/18/22 10:22 113 H 21 100 02/18/22 10:22 125/73 02/18/22 10:04 122/62 02/18/22 10:04 118 H 23 99 02/18/22 10:00 116 H 19 99 02/18/22 10:00 84/47 L 02/18/22 09:46 124 H 23 99 02/18/22 09:46 118/65 02/18/22 09:45 125 H 18 98 02/18/22 09:30 110 H 24 99 02/18/22 09:30 110/67 02/18/22 09:15 133 H 25 H 97 02/18/22 09:15 124/74 02/18/22 09:00 38.8 C H 135 H 23 124/83 96 02/18/22 09:00 124/83 02/18/22 08:46 116/71 02/18/22 08:46 133 H 23 91 02/18/22 08:45 129 H 29 H 96 02/18/22 08:30 130 H 28 H 94 02/18/22 08:30 106/91 02/18/22 08:15 136 H 26 H 93 02/18/22 08:15 156/66 H 02/18/22 08:04 135/79 02/18/22 08:04 135 H 23 90 02/18/22 08:02 87/68 L 02/18/22 08:02 134 H 22 91 02/18/22 08:00 138 H 23 91 02/18/22 07:54 133 H 21 90 02/18/22 08:11 130 H 24 135/79 92 02/18/22 07:01 107 H 14 121/60 94 02/18/22 06:45 100 H 20 103/76 87 L 02/18/22 06:30 106 H 26 H 91 02/18/22 06:30 111/68 02/18/22 06:15 101 H 18 94 02/18/22 06:15 115/65 02/18/22 06:00 94 H 20 95 02/18/22 06:00 106/63 02/18/22 05:55 93 H 17 88 L 02/18/22 05:47 95 H 16 95 02/18/22 05:47 88/59 L 02/18/22 05:46 97 H 15 88/59 L 97 02/18/22 05:45 101 H 14 91/63 L 95 02/18/22 05:41 93 H 16 99 02/18/22 05:39 84 18 94 02/18/22 05:15 88 16 93/53 L 97 02/18/22 05:12 89 L 02/18/22 05:16 88 20 93/58 L 96 O2 Del Method O2 Flow Rate 02/18/22 13:21 02/18/22 11:00 Oxymask 2 02/18/22 10:30 Oxymask 10 02/18/22 10:30 02/18/22 10:22 Oxymask 10 02/18/22 10:22 02/18/22 10:04 02/18/22 10:04 Oxymask 02/18/22 10:00 Oxymask 10 02/18/22 10:00 02/18/22 09:46 Oxymask 10 02/18/22 09:46 02/18/22 09:45 Oxymask 10 02/18/22 09:30 Oxymask 10 02/18/22 09:30 02/18/22 09:15 Oxymask 10 02/18/22 09:15 02/18/22 09:00 Oxymask 10 02/18/22 09:00 02/18/22 08:46 02/18/22 08:46 Non-rebreather 15 02/18/22 08:45 Non-rebreather 15 02/18/22 08:30 Non-rebreather 15 02/18/22 08:30 02/18/22 08:15 Non-rebreather 15 02/18/22 08:15 02/18/22 08:04 02/18/22 08:04 Non-rebreather 5 02/18/22 08:02 02/18/22 08:02 Non-rebreather 15 02/18/22 08:00 Non-rebreather 15 02/18/22 07:54 Non-rebreather 15 02/18/22 08:11 Non-rebreather 15 02/18/22 07:01 02/18/22 06:45 02/18/22 06:30 02/18/22 06:30 02/18/22 06:15 02/18/22 06:15 02/18/22 06:00 02/18/22 06:00 02/18/22 05:55 02/18/22 05:47 02/18/22 05:47 02/18/22 05:46 02/18/22 05:45 02/18/22 05:41 02/18/22 05:39 02/18/22 05:15 02/18/22 05:12 02/18/22 05:16 Non-rebreather 15 Coding Level of Care Code 96116 Inpt Consult Level 4 Diagnoses Altered mental status R41.82 Aspiration pneumonia J69.0 Sepsis A41.9
--- NOTE | 2022-02-18 14:30 | Pharmacy Report ---
Pharmacy PK ABX Note - Date of Service February 18, 2022 - Assessment and Plan Assessment 67 year old M receiving Vancomycin + Doxycycline + Ceftriaxone + Ampicillin + Acyclovir for treatment of possible meningitis. * PMHx significant for prostate cancer and multiple tick bites. * Questionable stroke vs seizure vs meningitis/encephalitis * Tmax of 39oC. No leukocytosis. Lactate 2.2 but improved to 0.6. SCr elevated slightly from baseline to 1.24. * CSF cytology, culture and blood cultures pending. Plan Vancomycin * Loading dose: 2250 mg IV x 1 * Maintenance dose: 750 mg IV every 12 hours * Regimen is predicted to achieve target AUC/TORRES of 400-600 mg/L.hr * Random level ordered for: 02/20/22 Doxycycline * 100 mg IV every 12 hours Ceftriaxone * 2000 mg IV every 12 hours Ampicillin * 2000 mg IV every 6 hours Acyclovir * 880 mg IV every 8 hours Pharmacy will continue to follow and will adjust dose/frequency as necessary. Thank you. Pharmacy has transitioned to AUC monitoring for vancomycin. AUC/TORRES is the preferred PK/PD target and is associated with decreased risk of nephrotoxicity compared to traditional trough targets.
--- NOTE | 2022-02-18 15:28 | Electrocardiogram Report ---
Test Reason : Blood Pressure : / mmHG Vent. Rate : 087 BPM Atrial Rate : 087 BPM P-R Int : 198 ms QRS Dur : 104 ms QT Int : 392 ms P-R-T Axes : 061 082 077 degrees QTc Int : 471 ms Normal sinus rhythm Normal ECG When compared with ECG of 28-SEP-2020 10:41, QT has lengthened Confirmed by Lavelle aSab ([id number]) on 02/18/2022 3:27:59 PM Referred By: REFERRED SELF Confirmed By:Lavelle Saab
[2022-02-18] MEDS: dexAMETHasone 10 MG in SYRINGE 0 ML IV SCH ×2 (16:07→20:37)
[2022-02-18] MEDS: ACYCLOVIR SOD IV SCH (17:18)
[2022-02-18] MEDS: DEXTROSE 5% IV SCH (17:18)
[2022-02-18] MEDS: AMPICILLIN 2,000 MG in SODIUM CHLOR 0.9% AD-VAN 100 ML IV SCH ×2 (18:10→21:13)
[2022-02-18 18:48] LABS: Base Excess VBG 0.3 mEq/L; HCO3 VBG 25 mmol/L; Oxygen Saturation VBG 62.8 %; PCO2 VBG 42 mmHg (38-50); PO2 VBG 35 mmHg; pH VBG 7.39 (7.36-7.41)
[2022-02-18 19:07] LABS: Hematocrit (blood only) 32.6 % (40.1-51.0); Hemoglobin 11.5 g/dl (14.0-18.0); Mean Corpuscular Hemoglobin 31.1 pg (25.0-34.0); Mean Corpuscular Hgb Conc 35.3 g/dL (32.0-36.0); Mean Corpuscular Volume 88.1 fL (80.0-100.0); Mean Platelet Volume 10.1 fL (9.4-12.4); Platelet Count 188 K/uL (130-400); RDW Coefficient of Variation 12.2 % (11.5-14.5); RDW Standard Deviation 39.2 fL (36.4-46.3); White Blood Count 9.91 K/ul (4.8-10.8)
[2022-02-18 19:13] LABS: Albumin Globulin Ratio 1.6 (0.9-2); Albumin Level 3.6 gm/dl (3.4-5.0); BUN Creatinine Ratio 14.9 (10-20); Bilirubin,Total 0.6 mg/dl (0.2-1.0); Calcium 8.1 mg/dl (8.5-10.1); Creatinine Clr Calc Pharmacy 78.4 ml/min; Est GFR (African American) 88.2 ml/min; Est GFR (Non-African American) 76.1 ml/min; Globulin 2.3 gm/dl (2.5-4.0); Magnesium 1.5 mg/dl (1.7-2.4); Potassium 3.4 mmol/L (3.5-5.1); Total Protein 5.9 gm/dl (6.0-8.3)
[2022-02-18 19:27] LABS: Basophils # (auto) 0.01 K/uL (0-0.2); Basophils % (auto) 0.1 %; Immature Granulocytes # (auto) 0.03 K/uL (0.00-0.02); Immature Granulocytes % (auto) 0.3 %; Lymphocytes # (auto) 0.12 K/uL (1.2-3.4); Lymphocytes % (auto) 1.2 %; Monocytes # (auto) 0.35 K/uL (0.24-0.82); Monocytes % (auto) 3.5 %; Neutrophils % (auto) 94.9 %; Toxic Vacuolation 1+
[2022-02-18] MEDS: FAMOTIDINE 20 MG in SYRINGE 3 ML IV SCH (20:37)
[2022-02-18] MEDS: cefTRIAXone SODIUM 2,000 MG in DEXTROSE 5% 50 ML IV SCH (20:37)
[2022-02-18] MEDS: levETIRAcetam 500 MG in 0.9 % SODIUM CHLORIDE 100 ML IV SCH (20:51)
[2022-02-18] MEDS: VANCOMYCIN HCL 750 MG in SODIUM CHLORIDE 0.9% 250 ML IV SCH (20:51)
[2022-02-18] MEDS: DOXYCYCLINE HYCLATE 100 MG in DEXTROSE 5% 100 ML IV SCH (23:19)
[2022-02-19] MEDS: DEXTROSE 5% IV SCH ×3 (01:05→18:01)
[2022-02-19] MEDS: ACYCLOVIR SOD IV SCH ×3 (01:05→18:01)
[2022-02-19 01:44] LABS: A calco-baum cmplx NotReported Not Detected (NotDetected); Bact fragilis Not Reported Not Detected (NotDetected); C auris Not Reported Not Detected (NotDetected); Calbicans Not Reported Not Detected (NotDetected); Candida glabrata Not Reported Not Detected (NotDetected); Candida krusei Not Reported Not Detected (NotDetected); Cneoformans/gatti Not Reported Not Detected (NotDetected); Cparapsilosis Not Reported Not Detected (NotDetected); Ctropicalis Not Reported Not Detected (NotDetected); E cloacae compx Not Reported Not Detected (NotDetected); Efaecalis Not Reported Not Detected (NotDetected); Efaecium Not Reported Not Detected (NotDetected); Enterobacterales Not Reported Not Detected (NotDetected); Escherichia coli Not Reported Not Detected (NotDetected); H influenzae Not Reported Not Detected (NotDetected); K aerogenes Not Reported Not Detected (NotDetected); Koxytoca Not Reported Not Detected (NotDetected); Kpneumoniae grp Not Reported Not Detected (NotDetected); Lmonocyt Not Reported Not Detected (NotDetected); N meningitidis Not Reported Not Detected (NotDetected); P aeruginosa Not Reported Not Detected (NotDetected); Proteus spp Not Reported Not Detected (NotDetected); Salmonella spp Not Reported Not Detected (NotDetected); Smarcescens Not Reported Not Detected (NotDetected); Staph lugdunensis Not Reported Not Detected (NotDetected); Staph spp. Not Reported DETECTED (NotDetected); Staphaureus Not Reported Not Detected (NotDetected); Staphepi Not Reported Not Detected (NotDetected); Stenmaltophilia Not Reported Not Detected (NotDetected); Strep agal(GrpB) Not Reported Not Detected (NotDetected); Strep pneum Not Reported Not Detected (NotDetected); Strep pyog (GrpA) Not Reported Not Detected (NotDetected); Strep spp Not Reported Not Detected (NotDetected)
[2022-02-19 02:19] LABS: Staphylococcus spp. DETECTED (NotDetected)
--- NOTE | 2022-02-19 02:37 | Communication Note ---
Date of Service: February 19, 2022/ aerobic blood culture tubes prelim pos for gram pos cocci cluster; staph, per PCR. Patient's current abx are adequate.
[2022-02-19] MEDS: AMPICILLIN 2,000 MG in SODIUM CHLOR 0.9% AD-VAN 100 ML IV SCH ×4 (04:35→21:34)
[2022-02-19] MEDS: dexAMETHasone 10 MG in SYRINGE 0 ML IV SCH ×4 (04:36→21:34)
[2022-02-19 07:09] LABS: Hematocrit (blood only) 30.5 % (40.1-51.0); Hemoglobin 10.9 g/dl (14.0-18.0); Mean Corpuscular Hemoglobin 31.6 pg (25.0-34.0); Mean Corpuscular Hgb Conc 35.7 g/dL (32.0-36.0); Mean Corpuscular Volume 88.4 fL (80.0-100.0); Mean Platelet Volume 9.4 fL (9.4-12.4); Platelet Count 175 K/uL (130-400); RDW Coefficient of Variation 12.5 % (11.5-14.5); RDW Standard Deviation 40.2 fL (36.4-46.3); Red Blood Count 3.45 M/uL (4.63-6.08); White Blood Count 9.68 K/ul (4.8-10.8)
[2022-02-19 07:26] LABS: BUN Creatinine Ratio 18.4 (10-20); Calcium 8.1 mg/dl (8.5-10.1); Creatinine Clr Calc Pharmacy 76.9 ml/min; Est GFR (African American) 86.1 ml/min; Est GFR (Non-African American) 74.3 ml/min; Magnesium 1.7 mg/dl (1.7-2.4); Potassium 3.5 mmol/L (3.5-5.1)
[2022-02-19] MEDS: FAMOTIDINE 20 MG in SYRINGE 3 ML IV SCH ×2 (09:00→20:14)
[2022-02-19] MEDS: ENOXAPARIN INJ 40 MG/0.4 ML SYR SQ SCH (09:00)
[2022-02-19] MEDS: levETIRAcetam 500 MG in 0.9 % SODIUM CHLORIDE 100 ML IV SCH ×2 (09:01→20:10)
[2022-02-19] MEDS: cefTRIAXone SODIUM 2,000 MG in DEXTROSE 5% 50 ML IV SCH ×2 (09:02→20:57)
[2022-02-19] MEDS: VANCOMYCIN HCL 750 MG in SODIUM CHLORIDE 0.9% 250 ML IV SCH ×2 (09:18→21:33)
[2022-02-19] MEDS ORDERED: GADOBUTROL 65ML VIAL IV ONE (10:30)
--- NOTE | 2022-02-19 10:41 | Hospitalist Progress Note ---
Date of Service February 19, 2022 Assessment & Plan (1) CVA (cerebral vascular accident): Plan: Possible diagnosis. Initial MRI on 02/18 was negative for CVA; however, with movement artifact, was thought to only be ~80% sensitive compared with a high- quality study. - On 02/19, he is still largely aphasic with right-sided weakness. - Repeat MRI done, but not yet read. - Neurology consulted - Will review MRI with them. - CHILD DEVELOPMENT PROFESSOR, PT/OT all consulted (2) Infectious encephalopathy: Plan: Presumed cause of his altered mental status, though now seems less likely. Seizure possible, though EEG on 02/18 only with general slowing. No known toxic ingestions. - Treating for encephalitis/meningitis treatment: * Vancomycin * Ceftriaxone * Ampicillin * Acyclovir * Dexamethasone -> LP on 02/18 was essentially normal. [employer]Fire CSF panel was negative. - Follow blood cultures & CSF culture -> Blood cultures from 02/18 with Staph spc; however, general Staph spc, so suspect contaminant. Repeat cultures on 02/19 pending. - Discussed with ID on 02/18; felt it unlikely to be meningitis/encephalitis. - Will discuss with neurology; can likely de-escalate abx. (3) Aspiration pneumonia: Plan: Believe this to be due to his altered mental status, not etiology of. - Presently should be covered by ceftriaxone; typical bacteria now mostly Gram(- ) rather than anaerobic. Can adjust as needed. - Supplemental O2 as needed (4) Prostate cancer: Plan: Follows with CCP. - Continue bicalutamide as able (5) Hyperlipidemia: Plan: - Continue statin as able (6) GERD (gastroesophageal reflux disease): Plan: - Hold omeprazole - H2 majo IV while not able to take PO (7) DVT prophylaxis: Plan: Lovenox 40 mg SQ daily FULL CODE per at bedside Admission and Anticipated Discharge Date Admission Date: February 18, 2022 Subjective Improved mental status today. Giving thumbs up with left hand. Still not moving his right arm much. Physical Exam Constitutional: WD/WN, vitals as above Eyes: no eyelid abnormality and no conjunctival abnormality ENMT: external ear and nose normal, oropharynx normal Neck: trachea midline, no thyromegaly normal visual inspection Respiratory: normal respiratory effort, lungs clear to auscultation + cough; no respiratory distress, no labored breathing and does not use accessory muscles Auscultation: lungs clear to auscultation bilaterally Cardiovascular: Rate/Rhythm: regular rate and regular rhythm Gastrointestinal (Abdomen): Inspection/Auscultation: abdomen normal to inspection; abdomen not distended Percussion/Palpation: abdomen soft; abdomen nontender, no guarding and abdomen not rigid Skin: no rashes, warm and dry Neurologic: awake; + does not move all extremities (Right side weaker) and not obtunded Psychiatric: Orientation: alert and cooperative Results & Data Results & Data ([facility]) Vital Signs (Past 12 Hours) Vital Signs Temp Pulse Pulse Resp BP Pulse Ox O2 Del Method 02/19/22 10:19 Room Air 02/19/22 08:24 37.0 C 85 20 115/64 95 02/19/22 07:36 82 02/19/22 02:30 37.1 C 88 19 97/60 L 95 Room Air 02/18/22 23:42 85 02/18/22 22:51 37.0 C 77 18 110/53 L 94 Room Air PG Care Time/CCT Total # of Minutes Spent Total Time Spent with Patient: Total time spent is greater than 50% in coordination of care (as documented) at patient's floor/unit and/or counseling patient: Coding Level of Care Code 19469 Subseq Hosp Care Lvl 3 Diagnoses CVA (cerebral vascular accident) I63.9 Infectious encephalopathy G93.49; B99.9 Aspiration pneumonia J69.0 Prostate cancer C61 Hyperlipidemia E78.5 GERD (gastroesophageal reflux disease) K21.9 DVT prophylaxis Z29.9
--- NOTE | 2022-02-19 11:21 | Magnetic Resonance Report ---
Brain MRI WITH AND WITHOUT CONTRAST HISTORY: Right side paralysis and aphasia TECHNIQUE: Multiplanar multisequence MRI of the brain was performed both before and after the intrave nous administration of contrast. COMPARISON STUDY: Brain MRI 02/18/2022.. FINDINGS: There are no areas of restricted diffusion to suggest acute infarction. The midline structu res are intact. The paranasal sinuses are clear. The mastoid air cells are clear. The ventricles and sulci are within normal limits for age. There is no mass, hematoma, midline shift. The major vascular flow-voids at the skull base are well maintained. Postcontrast sequences show no areas of abnormal e nhancement. A few punctate foci of T2 hyperintensity within the ventricular and subcortical white mat ter of the supratentorial brain are nonspecific but favor minimal microvascular ischemic change. The temporal lobes are symmetric. Fluid levels within the sphenoid sinuses resulting in near complete opa cification. Incidental note is made of a small developmental venous anomaly within the left parietal lobe. This is considered to be a normal variant. IMPRESSION: 1. No acute infarct or intracranial hemorrhage. 2. Acute sphenoid sinusitis. ACT 112: Negative or not required by law. Electronically signed by: Collin Davis M.D. 02/19/2022 11:20 AM
[2022-02-19] MEDS: DOXYCYCLINE HYCLATE 100 MG in DEXTROSE 5% 100 ML IV SCH ×2 (11:36→23:01)
--- NOTE | 2022-02-19 12:48 | Neurology Progress Note ---
Date of Service February 19, 2022 Assessment & Plan (1) Acute encephalopathy: (2) Fever: (3) Right hemiparesis: (4) Expressive aphasia: Plan This patient has the acute onset of encephalopathy of uncertain cause. He had an event where he passed out at his chin on the top. I believe he must of had a seizure ( Prolactin markedly elevated at 79) but I do not know was primary or secondary. He has no history to suggest primary seizures however. I suggest that this was a secondary seizure and he had some ischemia which triggered it and between the ischemia and the postictal state, he has retained expressive ( and possibly receptive ) aphasia. He does not have a gaze pref erence anymore and his right side seems to be symmetrical in strength with the left even though he does not move it quite as much as the left. MRI today showed absolutely no acute stroke and very minimal old small vessel ischemic disease. CT angiography was unremarkable and labs were unremarkable. He did have a fever but he has no meningeal signs or elevated white count. LP so far shows no evidence of infection. The slightly elevated protein is nonspecific. It is possible that he has a reversible ischemic neurologic deficit ( symptoms longer than the typical TIA, but no stroke on MRI) and left over post ictal cortical depression resulting in the all the symptoms he has displays Recommendations: 1. awaiting the rest of the LP results. Continue antibiotics and acyclovir empirically until more results come back. 2. Avoid CASUALTY CLAIM ADJUSTER sedating medication at this time. 3. increase activity as able. 4. I will follow Overall, I spent a total of 35 minutes with this case including review of records, review of MRI films, direct evaluation the patient at bedside, and discussion of the case with the patient , his daughter, and his at bedside, RN at bedside, and Dr. Snow including differential diagnosis and treatment options. Admission and Anticipated Discharge Date Admission Date: February 18, 2022 Subjective Patient is in good spirits and claims he is not in pain. He is very awake and alert but he cannot form words or speak well. There may be some comprehension issues as well but he tries very hard to say a word and can get frustrated. Blood pressure is 116/65. Repeat MRI of the brain showed no stroke and very minimal old small vessel ischemic disease. I reviewed these films. Laboratory studies today revealed some mild anemia, glucose of 146 a low calcium of 8.1. CSF is shown no signs of infection or inflammation so far. Results & Data ([facility]) Vital Signs (Past 12 Hours) Vital Signs Temp Pulse Pulse Resp BP Pulse Ox O2 Del Method 02/19/22 11:18 36.6 C 83 19 116/65 93 Room Air 02/19/22 10:19 Room Air 02/19/22 08:24 37.0 C 85 20 115/64 95 02/19/22 07:36 82 02/19/22 02:30 37.1 C 88 19 97/60 L 95 Room Air Exam (Neuro) Physical Exam: He is awake and alert. He tries to form words but he can't and but will grunt and make noises. I cannot make out any particular word he is trying to say in the noises son about the same trying to formulate different answers. I wonder about a mild receptive aphasia in addition to the significant motor aphasia. Extraocular eye muscles are intact without nystagmus or is no facial droop. Tongue is midline. He can follow some one-step commands. Strength seems symmetrical in all 4 limbs although he is moving the right side a little less spontaneously the left. He did not note any focal weakness. Toes are downgoing to plantar stimulation bilaterally. PG Care Time/CCT Total # of Minutes Spent Total Time Spent with Patient: Total time spent is greater than 50% in coordination of care (as documented) at patient's floor/unit and/or counseling patient: Coding Level of Care Code 45664 Subseq Hosp Care Lvl 3 Diagnoses Acute encephalopathy G93.40 Fever R50.9 Right hemiparesis G81.91 Expressive aphasia R47.01 Time Spent (min) 35
[2022-02-19] MEDS: ASPIRIN 81 MG ECTAB PO SCH (15:25)
[2022-02-20] MEDS: ACYCLOVIR SOD IV SCH (02:47)
[2022-02-20] MEDS: DEXTROSE 5% IV SCH (02:47)
[2022-02-20] MEDS: dexAMETHasone 10 MG in SYRINGE 0 ML IV SCH (03:19)
[2022-02-20] MEDS: AMPICILLIN 2,000 MG in SODIUM CHLOR 0.9% AD-VAN 100 ML IV SCH (03:19)
[2022-02-20 07:24] LABS: Mean Corpuscular Hgb Conc 35.5 g/dL (32.0-36.0); Mean Corpuscular Volume 90.1 fL (80.0-100.0); Platelet Count 231 K/uL (130-400); RDW Coefficient of Variation 12.8 % (11.5-14.5); RDW Standard Deviation 42.5 fL (36.4-46.3); Red Blood Count 3.44 M/uL (4.63-6.08); White Blood Count 11.87 K/ul (4.8-10.8)
[2022-02-20] MEDS: ADVANCED PROBIOTIC 1250 MG CAPSULE PO SCH (07:44)
[2022-02-20] MEDS: ASPIRIN 81 MG ECTAB PO SCH (07:44)
[2022-02-20] MEDS: cefTRIAXone SODIUM 2,000 MG in DEXTROSE 5% 50 ML IV SCH ×2 (07:49→20:26)
[2022-02-20] MEDS: DOXYCYCLINE HYCLATE 100 MG CAP PO SCH ×2 (07:53→20:28)
[2022-02-20] MEDS: levETIRAcetam 500 MG TAB PO SCH ×2 (07:53→20:27)
[2022-02-20] MEDS: PANTOprazole 40 MG TAB PO SCH (07:53)
[2022-02-20 07:54] LABS: BUN Creatinine Ratio 27.1 (10-20); Calcium 8.4 mg/dl (8.5-10.1); Creatinine Clr Calc Pharmacy 93.6 ml/min; Est GFR (African American) 103.8 ml/min; Est GFR (Non-African American) 89.5 ml/min; Magnesium 1.9 mg/dl (1.7-2.4); Potassium 3.7 mmol/L (3.5-5.1)
[2022-02-20] MEDS: ENOXAPARIN INJ 40 MG/0.4 ML SYR SQ SCH (09:05)
--- NOTE | 2022-02-20 09:54 | Neurology Progress Note ---
Date of Service February 20, 2022 Assessment & Plan (1) Acute encephalopathy: (2) Fever: (3) Right hemiparesis: (4) Expressive aphasia: Plan This patient had the acute onset of encephalopathy February 18 of uncertain cause. He had an event where he passed out in the bathroom, and hit his chin on the tub. I believe he must of had a seizure ( Prolactin markedly elevated at 79) but I do not know was primary or secondary. He has no history to suggest primary seizures, however And the MRI showed no abnormalities that would put him at risk for seizures. I suggest that this was a secondary seizure and he had some ischemia which triggered it. Between the ischemia and the postictal state, he has expressive ( and possibly receptive ) aphasia. He does not have a gaze preference anymore and his right side seems to be symmetrical in strength with the left (except for some right hand clumsiness). This morning he is markedly improved compared to yesterday, and the right side is improved and the right leg seems to have normal strength compared to the left. He does not seem to have as much aphasia and can speak words now. MRI February 19 showed absolutely no acute stroke and very minimal old small vessel ischemic disease. CT angiography was unremarkable and labs were unremarkable. He did have a fever February 18, but he had no meningeal signs or elevated white count. LP showed no evidence of infection. The slightly elevated protein is nonspecific. I note that he has a mildly elevated white count today and that he had 2 blood cultures from the positive for gram-positive cocci in clusters. He has receive significant antibiotics since admission. It is probable that he has a "reversible ischemic neurologic deficit' ( symptoms longer than the typical TIA, but no stroke on MRI), with post-ictal cortical depression, resulting in the all the neurologic signs and symptoms interestingly, he is much better today. This would be consistent this hypothesis. Each day should be better than day before and his symptoms should essentially resolved. Recommendations: 1. awaiting the rest of the LP results. 2. Avoid DEMO SPECIALIST sedating medication at this time. 3. increase activity as able. 4. Consider a course of antibiotics because of his positive blood cultures. Overall, I spent a total of 35 minutes with this case including review of records, direct evaluation the patient at bedside, and discussion of the case with the patient , his daughter, and his at bedside, RN at bedside, and Dr. Snow including differential diagnosis and treatment options. Admission and Anticipated Discharge Date Admission Date: February 18, 2022 Subjective Patient is doing much better and in great spirits. He is talking more and moving more. Nursing reports no further issues or problems. Blood pressure is 146/76 and he is Afebrile Blood cultures from February 18 grew out some gram positive cocci clusters in 2 of 2 bottles. Cerebral spinal fluid shows no growth to date. Blood cultures from 02/19 have no growth to date also White count is mildly elevated at 11.8 today his hemoglobin hematocrit improved some. Chem profile is unremarkable. glucose is 136. Calcium is improved at 8 4 Results & Data ([facility]) Vital Signs (Past 12 Hours) Vital Signs Temp Pulse Pulse Resp BP Pulse Ox O2 Del Method 02/20/22 07:36 36.9 C 112 H 20 146/76 H 92 Room Air 02/20/22 07:20 82 02/20/22 03:00 36.9 C 64 18 142/80 H 92 Room Air 02/19/22 23:00 71 02/19/22 22:57 36.8 C 81 22 127/77 91 Room Air Exam (Neuro) Physical Exam: he is awake and alert. Speech is without any receptive issue. He seems to understand and follow more complex commands today than he did yesterday. He does have some word-finding difficulties but can state his name and age. He repeats test words and has a little bit of dysarthria. Mood is normal and affect is appropriate. Extraocular eye muscles are intact without nystagmus. There is no facial droop. He is a little clumsy in his right upper extremity but he is moving it better and has fairly symmetrical strength in the legs. Proximal in the right upper extremity is normal as well. The left side is normal. There are no abnormal involuntary movements. PG Care Time/CCT Total # of Minutes Spent Total Time Spent with Patient: Total time spent is greater than 50% in coordination of care (as documented) at patient's floor/unit and/or counseling patient: Coding Level of Care Code 62615 Subseq Hosp Care Lvl 3 Diagnoses Acute encephalopathy G93.40 Fever R50.9 Right hemiparesis G81.91 Expressive aphasia R47.01 Time Spent (min) 35
--- NOTE | 2022-02-20 12:14 | Hospitalist Progress Note ---
Date of Service February 20, 2022 Assessment & Plan (1) Reversible ischemic neurologic deficit: Plan: Initial MRI on 02/18 was negative for CVA; however, with movement artifact, was thought to only be ~80% sensitive compared with a high-quality study. Repeat MRI on 02/19 was also negative for stroke. - On 02/19, he is still largely aphasic with right-sided weakness. - On 02/20, much of his function is returning. Halting speech, but vastly improved. Right side strength is normal, though he still has some neglect. Still seems to have some comprehension issues. - HORSE STUD MANAGER, PT/OT all consulted -> All asking for him to remain for 1 more day to continue improving. Will need outpatient PT/OT/HORSE STUD MANAGER if he is discharged tomorrow. (Also getting echo today and daughter & I spoke about possible 30-day monitor, so that is also possible.) (2) Infectious encephalopathy: Plan: Presumed cause of his altered mental status, though now seems less likely. Seizure possible, though EEG on 02/18 only with general slowing. No known toxic ingestions. - Treated for encephalitis/meningitis treatment: * Vancomycin * Ceftriaxone * Ampicillin * Acyclovir * Dexamethasone -> LP on 02/18 was essentially normal. [employer]Fire CSF panel was negative. - Follow blood cultures & CSF culture -> Blood cultures from 02/18 with Staph spc; however, general Staph spc, so suspect contaminant. Repeat cultures on 02/19 pending. - Discussed with ID on 02/18; felt it unlikely to be meningitis/encephalitis. - Stopped vanc, ampicillin, acyclovir, and dexamethasone on 02/20 for continued negative studies. - Also did send out paraneoplastic encephalitis panel (3) Aspiration pneumonia: Plan: Believe this to be due to his altered mental status, not etiology of. - Continue ceftriaxone; typical bacteria now mostly Gram(-) rather than anaerobic. 5-day course would be 02/22. (4) Prostate cancer: Plan: Follows with CCP. No known bony mets. - Continue bicalutamide as able (5) Hyperlipidemia: Plan: - Continue statin (6) GERD (gastroesophageal reflux disease): Plan: - Continue PPI (7) DVT prophylaxis: Plan: Lovenox 40 mg SQ daily FULL CODE per at bedside Admission and Anticipated Discharge Date Admission Date: February 18, 2022 Subjective Doing much better today. Able to speak many more words. Still hesitant with fluency, but much better. Right side seems to have some neglect still, and he still has some comprehension issues (has trouble with some of my instructions for neurology test). But overall doing much better and asking when he can go home. Physical Exam Constitutional: WD/WN, vitals as above Eyes: no eyelid abnormality and no conjunctival abnormality ENMT: external ear and nose normal, oropharynx normal Neck: trachea midline, no thyromegaly normal visual inspection Respiratory: normal respiratory effort, lungs clear to auscultation no respiratory distress, no labored breathing and does not use accessory muscles Auscultation: lungs clear to auscultation bilaterally Cardiovascular: Rate/Rhythm: regular rate and regular rhythm Gastrointestinal (Abdomen): Inspection/Auscultation: abdomen normal to inspection; abdomen not distended Percussion/Palpation: abdomen soft; abdomen nontender, no guarding and abdomen not rigid Skin: no rashes, warm and dry Neurologic: moves all extremities and awake; not obtunded Psychiatric: Orientation: alert, oriented to person, oriented to place and cooperative Results & Data Results & Data ([facility]) Vital Signs (Past 12 Hours) Vital Signs Temp Pulse Pulse Resp BP Pulse Ox O2 Del Method 02/20/22 10:45 36.9 C 76 18 134/72 94 Room Air 02/20/22 10:24 Room Air 02/20/22 07:36 36.9 C 112 H 20 146/76 H 92 Room Air 02/20/22 07:20 82 02/20/22 03:00 36.9 C 64 18 142/80 H 92 Room Air PG Care Time/CCT Total # of Minutes Spent Total Time Spent with Patient: Total time spent is greater than 50% in coordination of care (as documented) at patient's floor/unit and/or counseling patient: Coding Level of Care Code 21604 Subseq Hosp Care Lvl 3 Diagnoses Reversible ischemic neurologic deficit I63.9 Infectious encephalopathy G93.49; B99.9 Aspiration pneumonia J69.0 Prostate cancer C61 Hyperlipidemia E78.5 GERD (gastroesophageal reflux disease) K21.9 DVT prophylaxis Z29.9
--- NOTE | 2022-02-20 12:20 | XCELERA ---
[id number]
[2022-02-20] MEDS ORDERED: COUGH DROP (SUGAR FREE) LOZ 24 LOZ/1 BOX BUCCAL ONE (13:19)
[2022-02-21 06:53] LABS: Hematocrit (blood only) 32.1 % (40.1-51.0); Hemoglobin 11.3 g/dl (14.0-18.0); Mean Corpuscular Hemoglobin 31.5 pg (25.0-34.0); Mean Corpuscular Hgb Conc 35.2 g/dL (32.0-36.0); Mean Corpuscular Volume 89.4 fL (80.0-100.0); Mean Platelet Volume 9.3 fL (9.4-12.4); Platelet Count 229 K/uL (130-400); RDW Coefficient of Variation 12.8 % (11.5-14.5); RDW Standard Deviation 42.2 fL (36.4-46.3); Red Blood Count 3.59 M/uL (4.63-6.08); White Blood Count 7.06 K/ul (4.8-10.8)
[2022-02-21 07:12] LABS: BUN Creatinine Ratio 23.2 (10-20); Calcium 8.7 mg/dl (8.5-10.1); Creatinine Clr Calc Pharmacy 80.1 ml/min; Est GFR (African American) 90.3 ml/min; Est GFR (Non-African American) 77.9 ml/min; Potassium 3.2 mmol/L (3.5-5.1)
--- NOTE | 2022-02-21 08:24 | Neurology Progress Note ---
Date of Service February 21, 2022 Assessment & Plan (1) Acute encephalopathy: (2) Fever: (3) Right hemiparesis: (4) Expressive aphasia: Plan This patient had the acute onset of encephalopathy February 18 of uncertain cause. He had an event where he passed out in the bathroom, and hit his chin on the tub. I believe he must of had a seizure ( Prolactin markedly elevated at 79) but I do not know was primary or secondary. He has no history to suggest primary seizures, however And the MRI showed no abnormalities that would put him at risk for seizures. I suggest that this was a secondary seizure and he had some ischemia which triggered it. Between the ischemia and the postictal state, he has expressive ( and possibly receptive ) aphasia. He does not have a gaze preference anymore and his right side seems to be symmetrical in strength with the left (except for some right hand clumsiness). This morning he is markedly improved with his speech and movement, even compared to yesterday which was improved significantly from the day. Right side is improved and the right leg seems to have normal strength compared to the left. He Has little in the way of aphasia and can read words and identify objects very well. He has just a little bit slow / hesitant slightly dysarthric. MRI February 19 showed absolutely no acute stroke and very minimal old small vessel ischemic disease. CT angiography was unremarkable and labs were unremarkable. He did have a fever February 18, but he had no meningeal signs or elevated white count. LP showed no evidence of infection. The slightly elevated protein is nonspecific. I note that he has a mildly elevated white count today and that he had 2 blood cultures from the positive for gram-positive cocci in clusters. He has receive significant antibiotics since admission. It is probable that he has a "reversible ischemic neurologic deficit' ( symptoms longer than the typical TIA, but no stroke on MRI), with post-ictal cortical depression, resulting in the all the neurologic signs and symptoms interestingly, he is much better today. This would be consistent this hypothesis. Each day should be better than day before and his symptoms should essentially resolved. Recommendations: 1. awaiting the rest of the LP results. Some of the parameters may take a week or 2 to come. What has come back, is unremarkable. 2. Avoid METEOROLOGIST IN CHARGE sedating medication at this time. 3. increase activity as able. 4. Consider a course of antibiotics because of his positive blood cultures. 5. If this patient does need an antihypertensive medication, consider verapamil to pevent vasospasm. Overall, I spent a total of 60 minutes with this case including review of records, direct evaluation of the patient at bedside, and discussion of the case with the patient, RN at bedside, and Dr. Valderrama, including differential diagnosis and treatment options. Admission and Anticipated Discharge Date Admission Date: February 18, 2022 Subjective Who feels like he is doing much better today than yesterday. He knows he is speaking better and his right side feels better. He does not have any pain, double vision or other vision issues, dizziness, or numbness / tingling. CBC was unremarkable Except for mild, improving anemia. Chem profile revealed potassium of 3.2, normal glucose, blood pressure was 124/80. Nursing reports no new issues and he has been in normal sinus rhythm overnight. Results & Data ([facility]) Vital Signs (Past 12 Hours) Vital Signs Temp Pulse Pulse Resp BP Pulse Ox O2 Del Method 02/21/22 08:16 37.1 C 70 20 144/81 H 92 Room Air 02/21/22 03:10 36.6 C 78 17 124/80 92 Room Air 02/20/22 22:52 62 02/20/22 22:42 36.9 C 64 17 128/80 91 Room Air Exam (Neuro) Physical Exam: He is awake and alert. Speech is much better and he is formulating words much better than he did before. He still has some slight hesitancy and some slight dysarthria but this is quite mild compared to yesterday. He can name objects and read test words and phrases. He does have a little hesitancy to his reading but he gets the words correct. He can identify objects call them by name and he had no trouble with simple calculation. He was fully oriented to person place and time. When attempting to do the word "world" forward and backward, he skipped the letter O each time. he retained 2/3 test objects given him many minutes later. Extraocular eye muscles are intact without nystagmus. There is no facial droop. Tongue is midline. Sensation is normal in the face and limbs bilaterally. Motor strength seemed 5/5 diffusely in all major muscle groups in the arms and legs both proximally distally there was some clumsiness of the right hand slightly compared to the. Reflexes were 2/4 in all 4 limbs. Toes were downgoing plantar stimulation PG Care Time/CCT Total # of Minutes Spent Total Time Spent with Patient: Total time spent is greater than 50% in coordination of care (as documented) at patient's floor/unit and/or counseling patient: Coding Level of Care Code 47467 Subseq Hosp Care Lvl 3 Diagnoses Acute encephalopathy G93.40 Fever R50.9 Right hemiparesis G81.91 Expressive aphasia R47.01 Time Spent (min) 60
[2022-02-21] MEDS: DOXYCYCLINE HYCLATE 100 MG CAP PO SCH (09:20)
[2022-02-21] MEDS: PANTOprazole 40 MG TAB PO SCH (09:20)
[2022-02-21] MEDS: levETIRAcetam 500 MG TAB PO SCH ×2 (09:20→20:42)
[2022-02-21] MEDS: ADVANCED PROBIOTIC 1250 MG CAPSULE PO SCH (09:20)
[2022-02-21] MEDS: ENOXAPARIN INJ 40 MG/0.4 ML SYR SQ SCH (09:20)
[2022-02-21] MEDS: ASPIRIN 81 MG ECTAB PO SCH (09:20)
[2022-02-21] MEDS: cefTRIAXone SODIUM 2,000 MG in DEXTROSE 5% 50 ML IV SCH ×2 (09:29→20:41)
[2022-02-21] MEDS ORDERED: VANCOMYCIN CONSULT ACTIVE PRN (11:43)
[2022-02-21] MEDS ORDERED: VANCOMYCIN HCL 1,750 MG in SODIUM CHLORIDE 0.9% 500 ML IV ONE (12:30)
--- NOTE | 2022-02-21 13:17 | Hospitalist Progress Note ---
Date of Service February 21, 2022 Assessment & Plan (1) Reversible ischemic neurologic deficit: Plan: 67-year-old male past medical history significant for GERD, hyperlipidemia admitted for sudden onset focal neurologic deficits. Reversible ischemic neurologic deficit: - Presented to the ER with altered mental status, right-sided limb deficits and expressive aphasia. - CTA unremarkable. - Initial MRI on 02/18 was negative for CVA; however, with movement artifact, was thought to only be ~80% sensitive compared with a high-quality study. Repeat MRI on 02/19 was also negative for stroke. - EEG showed mild generalized slowing consistent with encephalopathy. - No shunting noted on Echocardiogram. - Patient continues to have improvement in his focal deficits. Still with some expressive aphasia, otherwise no focal deficits. - GLOBE CHANGER, PT/OT all consulted -> will need outpatient services on discharge. - Neurology consulted and appreciate recommendations: Suspect that patient had a seizure, perhaps secondary due to microvascular ischemia, with a postictal state. We will continue Keppra outpatient with follow-up with neurology in 2 weeks. (2) Infectious encephalopathy: Plan: - Initially this was the presumed cause of his altered mental status, though now seems less likely. No known toxic ingestions. - On admission was treated for encephalitis/meningitis with vancomycin, ceftriaxone, ampicillin, and acyclovir. - LP on 02/18 without evidence of infection. BioFire CSF panel was negative. - Blood cultures from 02/18 positive in 2/2 bottles, growing general Staph x2 species, non-MRSA. - ID consulted given positive BCx x2 bottles, without clear evidence of CVA or other pathology on evaluation that would explain his WAITER/WAITRESS FORMAL symptoms. - Recommended adding vancomycin while awaiting culture species to ensure contaminant species and not pathologically concerning species, especially given patient was febrile on 02/18. - Paraneoplastic encephalitis panel pending. (3) Positive blood culture: Plan: - See above (4) Aspiration pneumonia: Plan: - Believe that this occurred due to his altered mental status, not that it is the etiology of such. - Continue ceftriaxone, to complete a 5-day course on 02/22. (5) Prostate cancer: Plan: - Follows with [facility]. No known bony mets. - Continue bicalutamide as able. (6) Hyperlipidemia: Plan: - Continue statin. (7) GERD (gastroesophageal reflux disease): Plan: - Continue PPI. (8) DVT prophylaxis: Plan: - Lovenox 40 mg SQ daily. Plan - FULL CODE - easy to chew diet - PCU status Admission and Anticipated Discharge Date Admission Date: February 18, 2022 Subjective Patient without any acute events overnight. Feels much better today. Complains of an intermittent cough. Feels that his speech is much better today and that he has better function of his right arm. Review of Systems Constitutional: no fever and no chills Respiratory: + cough; no dyspnea Cardiovascular: no chest pain and no palpitations Gastrointestinal: no abdominal pain, no nausea and no vomiting Physical Exam Constitutional: WD/WN, vitals as above Respiratory: normal respiratory effort, lungs clear to auscultation (intermittent cough) Cardiovascular: RRR, no murmur, no edema Gastrointestinal (Abdomen): normal bowel sounds, soft, nontender, no hepatosplenomegaly Skin: no rashes, warm and dry Neurologic: Motor strength 5/5 in bilateral upper and lower extremities Facial sensation, arm and leg sensation intact bilaterally Some dysarthria, however no difficulty with naming objects or speaking in sentences Psychiatric: A+Ox3, euthymic affect Results & Data Results & Data ([facility]) Vital Signs (Past 12 Hours) Vital Signs Temp Pulse Pulse Resp BP Pulse Ox O2 Del Method 02/21/22 11:19 37.1 C 62 20 136/76 92 Room Air 02/21/22 08:19 69 02/21/22 08:16 37.1 C 70 20 144/81 H 92 Room Air 02/21/22 03:10 36.6 C 78 17 124/80 92 Room Air PG Care Time/CCT Total # of Minutes Spent Total Time Spent with Patient: Total time spent is greater than 50% in coordination of care (as documented) at patient's floor/unit and/or counseling patient: Coding Level of Care Code 98315 Subseq Hosp Care Lvl 3 Diagnoses Reversible ischemic neurologic deficit I63.9 Infectious encephalopathy G93.49; B99.9 Positive blood culture R78.81 Aspiration pneumonia J69.0 Prostate cancer C61 Hyperlipidemia E78.5 GERD (gastroesophageal reflux disease) K21.9 DVT prophylaxis Z29.9
--- NOTE | 2022-02-21 13:35 | Infectious Disease Consult ---
Date of Consultation February 21, 2022 Assessment & Plan (1) Positive blood culture: Plan 67 yo M with a history of prostate cancer, HLD who presented on 02/18 with altered mental status, after being found that morning incontinent of stool, not moving his R side well, with gaze deviation. CT head, CTA head/neck, MRI brain showed no acute findings. He also had a fever to 38.8 and was worked-up for meningitis/encephalitis, with normal LP, negative CSF gram stain and culture, negative CSF biofire panel. Neurology thinks he may have had a seizure secondary to ischemia, with reversible ischemic neurological deficits. His neurological deficits have improved. He was noted to have admission blood cultures growing 2 staph species in each of the aerobic vials in 2 sets. The BCID2 panel is negative for Staph aureus, Staph epi, Staph lug. Awaiting identification of the 2 staph species on culture, which will help decipher whether the Staph represents a true infection vs a contaminant. At this time, I favor this representing a contaminant because there are two different Staph species (not just one), and this is not Staph aureus per the PCR panel. It is unusual that it is growing from two different sets of blood cultures, however. He does not have any hardware, catheters, or wound that would predispose him to bacteremia. Recommendations: -Continue vancomycin for now -Follow-up 02/18 blood cultures for identification of Staph species -Follow-up 02/19 blood cultures for clearance Will continue to follow Consultation Information Consultation was provided via telemedicine using two-way real-time interactive telecommunication between the patient and the telemedicine provider. For the duration of the visit, the provider was performing the assessment from a different facility than the patient. This includesuse of bluetooth stethoscope forauscultationperformed by the telepresenter that the telemedicine provider can hear if described in the physical exam. Wash Worker contact information: Please call [facility] [phone]. (Phone Number For Physician Use Only) After establishing a telemedicine visit, patient was: Patient was verified with two unique identifiers, Patient/authorized rep acknowledged consent and understanding and Gave permission to continue telehealth session Time Spent w Inpatient: 20 minutes History of Present Illness Reason for Consultation: Bacteremia Attending Physician: Anya Barrow DO History of Present Illness 67 yo M with a history of prostate cancer, HLD who presented on 02/18 with altered mental status. He was obtunded on presentation. Per his , he was not feeling well the evening prior to admission, and reported some nausea and stomach cramping. The morning of admission, he was found on the ground, incontinent of stool, not moving his R side well, with gaze deviation. EMS was called and his SBP was in the 70s, improved with fluid. CT head, CTA head/neck, and MRI brain showed no acute findings (although with motion artifact, decreasing sensitivity). CT chest with contrast showed no PE, but did show bibasilar infiltrates c/w aspiration pneumonia/pneumonitis. Neurology was consulted. He had a fever to 38.8 and he was evaluated for encephalitis/meningitis, for which he was started on empiric vanc, ceftriaxone, ampicillin, acyclovir, dex. LP on 02/18 was essentially normal, and CSF biofire panel was negative. Given lower concern for meningitis/encephalitis, his antibiotics were de-escalated to ceftriaxone alone. Blood cultures from 02/18 are growing two species of Staph in 2/4 vials (1/2 vials in two separate blood culture sets), for which ID is now consulted. Per neurology notes, there is concern that he may have had a seizure secondary to ischemia, and that with the ischemia and postictal state, he had some expressive aphasia. He has since improved--gaze preference has resolved, R side appears to be symmetrical in strength in comparison to the L side, and aphasia has improved significantly. An MRI brain on 02/19 showed no stroke. It is thought he had reversible ischemic neurological deficits. Hardware Lines Allergies Allergy/AdvReac Type Severity Reaction Status Date / Time No Known Allergies Allergy Verified 12/07/21 07:59 Home Medications Medication Instructions Recorded Confirmed Type calcium carbonate 600 mg calcium 600 mg PO QDL 04/16/18 12/07/21 History (1,500 mg) tablet (Calcium) cholecalciferol (vitamin D3) 50 2,000 unit PO QDL 04/16/18 12/07/21 History mcg (2,000 unit) tablet (Vitamin D3) vitamin E 268 mg (400 unit) capsule 400 units PO QDL 09/07/18 12/07/21 History ibuprofen 200 mg tablet 400 mg PO DAILY PRN Pain 01/21/19 12/07/21 History naproxen sodium 220 mg tablet 220 mg PO DAILY PRN Pain 01/21/19 12/07/21 History (Aleve) omeprazole 20 mg capsule,delayed 20 mg PO DAILY PRN GERD #30 caps 10/26/20 12/07/21 Rx release bicalutamide 50 mg tablet 50 mg PO DAILY 05/26/21 12/07/21 History gabapentin 300 mg capsule 300 mg PO DAILY #30 caps 11/30/21 12/07/21 Rx atorvastatin 20 mg tablet 20 mg PO QAM #90 tabs 02/14/22 Rx Patient History Medical History (Updated 02/21/22 @ 13:40 by Emmanuelle Toribio MD) Acute alteration in mental status Altered mental status BPH (benign prostatic hyperplasia) Cervical herniated disc History of brachytherapy Hx of colonic polyps Hx of skin cancer, basal cell Hyperlipidemia Lumbar facet joint syndrome Neck pain with occasional numbness/tingling in right arm Neurogenic claudication due to lumbar spinal stenosis Osteoarthritis Osteoporosis Prostate cancer Radiation, brachytherapy and lupron injections Sepsis Surgical History H/O: vasectomy History of appendectomy History of cervical spinal surgery discectomy (1992) History of colonoscopy History of cystoscopy S/P left knee arthroscopy S/P Mohs surgery for basal cell carcinoma FACE Family History Father , age 88 old age PMH prostate ca Prostate cancer Mother , age 88 old age Dementia Sister No problems noted. Brother Controlled type 2 diabetes mellitus Brother No problems noted. Brother No problems noted. Brother No problems noted. Brother , age 13 rheumatic heart disease No problems noted. 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 Physical Exam Physical Exam: GEN: Well-appearing, in NAD. HEENT: Normocephalic, atraumatic. ABD: Soft, non-distended. EXT: No LE edema. Warm, well-perfused. SKIN: No lesions or rashes NEURO: Alert and oriented. PSYCH: Normal mood, affect appropriate. Results & Data ([facility]) Vital Signs (Past 12 Hours) Vital Signs Temp Pulse Pulse Resp BP Pulse Ox O2 Del Method 02/21/22 11:19 37.1 C 62 20 136/76 92 Room Air 02/21/22 08:19 69 02/21/22 08:16 37.1 C 70 20 144/81 H 92 Room Air 02/21/22 03:10 36.6 C 78 17 124/80 92 Room Air Laboratory Results Short CBC 02/21/22 Range/Units 06:33 WBC 7.06 (4.8-10.8) K/ul Hgb 11.3 L (14.0-18.0) g/dl Hct 32.1 L (40.1-51.0) % Plt Count 229 (130-400) K/uL BMP 02/21/22 06:33 Sodium 140 Potassium 3.2 L Chloride 108 H Carbon Dioxide 26 BUN 23 Creatinine 0.99 Glucose 109 H Calcium 8.7 Diagnostic Findings Brain MRI 02/19/22 06:58 Brain MRI WITH AND WITHOUT CONTRAST HISTORY: Right side paralysis and aphasia TECHNIQUE: Multiplanar multisequence MRI of the brain was performed both before and after the intravenous administration of contrast. COMPARISON STUDY: Brain MRI 02/18/2022.. FINDINGS: There are no areas of restricted diffusion to suggest acute infarction. The midline structures are intact. The paranasal sinuses are clear. The mastoid air cells are clear. The ventricles and sulci are within normal limits for age. There is no mass, hematoma, midline shift. The major vascular flow-voids at the skull base are well maintained. Postcontrast sequences show no areas of abnormal enhancement. A few punctate foci of T2 hyperintensity within the ventricular and subcortical white matter of the supratentorial brain are nonspecific but favor minimal microvascular ischemic change. The temporal lobes are symmetric. Fluid levels within the sphenoid sinuses resulting in near complete opacification. Incidental note is made of a small developmental venous anomaly within the left parietal lobe. This is considered to be a normal variant. IMPRESSION: 1. No acute infarct or intracranial hemorrhage. 2. Acute sphenoid sinusitis. ACT 112: Negative or not required by law. Electronically signed by: Collin Davis M.D. 02/19/2022 11:20 AM Microbiology 02/18/22 06:41 Blood Aerobic Blood Culture - Preliminary Staphylococcus species Staphylococcus species#2 02/18/22 06:41 Blood Anaerobic Blood Culture - Preliminary No growth in Anaerobic bottle after 48 hours. 02/18/22 06:41 Blood Aerobic Blood Culture - Preliminary Staphylococcus species Staphylococcus species#2 02/18/22 06:41 Blood Anaerobic Blood Culture - Preliminary No growth in Anaerobic bottle after 48 hours. 02/19/22 07:20 Blood Aerobic Blood Culture - Preliminary No growth in Aerobic bottle after 48 hours. 02/19/22 07:20 Blood Anaerobic Blood Culture - Preliminary No growth in Anaerobic bottle after 48 hours. 02/19/22 07:15 Blood Aerobic Blood Culture - Preliminary No growth in Aerobic bottle after 48 hours. 02/19/22 07:15 Blood Anaerobic Blood Culture - Preliminary No growth in Anaerobic bottle after 48 hours. 02/18/22 Unknown Cerebral Spinal Fluid Gram Stain - Final 02/18/22 Unknown Cerebral Spinal Fluid CSF Culture - Final No growth Medications Administered Current Inpatient Medications Aspirin (Aspirin 81 Mg Ectab) 81 mg PO QAM [facility] Stop: 03/21/22 14:14 Last Admin: 02/21/22 09:20 Dose: 81 mg Enoxaparin Sodium (Enoxaparin Inj 40 Mg/0.4 Ml Syr) 40 mg SQ QAM [facility] Stop: 03/21/22 08:59 Last Admin: 02/21/22 09:20 Dose: 40 mg Guaifenesin (Guaifenesin Sugar Free 100 Mg/5 Ml Udc) 100 mg PO Q6H PRN PRN Reason: Cough Stop: 03/23/22 13:21 Ceftriaxone Sodium 2,000 mg/ (Dextrose) 70 mls @ 100 mls/hr IV Q12H [facility]; Protocol Stop: 02/28/22 20:59 Last Infusion: 02/21/22 10:41 Dose: Infused Vancomycin HCl 1,750 mg/ (Sodium Chloride) 535 mls @ 200 mls/hr IV NOW ONE Stop: 02/21/22 15:10 Last Admin: 02/21/22 13:02 Dose: 200 mls/hr Vancomycin HCl 750 mg/ Sodium (Chloride) 265 mls @ 200 mls/hr IV Q12H [facility]; Protocol Stop: 03/08/22 00:00 Lactobacillus Acidophilus (Advanced Probiotic 1250 Mg Capsule) 1 cap PO DAILY [facility] Stop: 03/22/22 08:59 Last Admin: 02/21/22 09:20 Dose: 1 cap Levetiracetam (Levetiracetam 500 Mg Tab) 500 mg PO BID [facility] Stop: 03/22/22 08:59 Last Admin: 02/21/22 09:20 Dose: 500 mg Miscellaneous Information (Vancomycin Consult Active) 1 each N/A UD PRN PRN Reason: Consult Stop: 03/23/22 11:42 Ondansetron HCl (Ondansetron Inj 2 Mg/Ml 2 Ml Vial) 4 mg IV Q4H PRN PRN Reason: Nausea Stop: 03/20/22 11:14 Pantoprazole Sodium (Pantoprazole 40 Mg Tab) 40 mg PO QAM [facility] Stop: 03/22/22 08:59 Last Admin: 02/21/22 09:20 Dose: 40 mg
--- NOTE | 2022-02-21 14:07 | Pharmacy Report ---
Pharmacy PK ABX Note - Date of Service February 21, 2022 - Assessment and Plan Assessment 67 year old M receiving Vancomycin + Ceftriaxone for treatment of BACTEREMIA * PMHx significant for prostate cancer and multiple tick bites. * Vanco re-started today for possibility of oxacillin resistance staph bacteremia * ID consulted; await their recommendation Plan Vancomycin * Loading dose = 1750 mg IV X1 * Maintainance dose = 750 mg IV Q12H * Predicted AUC at steady state: 445 mg/L.hr * trough level ordered for: 02/22/22 because patient was previously on Vanco until 02/19 and might have residual vanco in system Ceftriaxone * 2000 mg IV every 12 hours Pharmacy will continue to follow and will adjust dose/frequency as necessary. Thank you. Pharmacy has transitioned to AUC monitoring for vancomycin. AUC/TORRES is the preferred PK/PD target and is associated with decreased risk of nephrotoxicity compared to traditional trough targets.
[2022-02-21] MEDS: guaiFENesin SUGAR FREE 100 MG/5 ML UDC PO PRN ×2 (14:40→20:46)
[2022-02-22] MEDS ORDERED: VANCOMYCIN HCL 750 MG in SODIUM CHLORIDE 0.9% 250 ML IV SCH
[2022-02-22 07:06] VITALS: O2SAT 91
[2022-02-22 08:50] LABS: Hematocrit (blood only) 33.9 % (40.1-51.0); Hemoglobin 11.9 g/dl (14.0-18.0); Mean Corpuscular Hemoglobin 31.2 pg (25.0-34.0); Mean Corpuscular Hgb Conc 35.1 g/dL (32.0-36.0); Platelet Count 240 K/uL (130-400); RDW Coefficient of Variation 12.4 % (11.5-14.5); RDW Standard Deviation 40.3 fL (36.4-46.3); Red Blood Count 3.81 M/uL (4.63-6.08); White Blood Count 5.08 K/ul (4.8-10.8)
[2022-02-22] MEDS: levETIRAcetam 500 MG TAB PO SCH (08:56)
[2022-02-22] MEDS: ENOXAPARIN INJ 40 MG/0.4 ML SYR SQ SCH (08:56)
[2022-02-22] MEDS: ADVANCED PROBIOTIC 1250 MG CAPSULE PO SCH (08:56)
[2022-02-22] MEDS: PANTOprazole 40 MG TAB PO SCH (08:56)
[2022-02-22] MEDS: ASPIRIN 81 MG ECTAB PO SCH (08:56)
[2022-02-22] MEDS: cefTRIAXone SODIUM 2,000 MG in DEXTROSE 5% 50 ML IV SCH (08:59)
[2022-02-22 09:15] LABS: Creatinine Clr Calc Pharmacy 78.5 ml/min; Est GFR (African American) 97.4 ml/min; Est GFR (Non-African American) 84.1 ml/min
[2022-02-22 09:16] LABS: BUN Creatinine Ratio 18.7 (10-20); Calcium 8.5 mg/dl (8.5-10.1); Creatinine Clr Calc Pharmacy 80.2 ml/min; Est GFR (Non-African American) 86.3 ml/min; Potassium 3.2 mmol/L (3.5-5.1)
[2022-02-22] MEDS ORDERED: BENZONATATE 100 MG CAPSULE PO ONE (09:34)
[2022-02-22] MEDS ORDERED: BENZONATATE 100 MG CAPSULE PO PRN (09:34)
[2022-02-22] MEDS ORDERED: ALBUTEROL HFA 8 GM INHALER INH PRN (09:46)
--- NOTE | 2022-02-22 10:47 | Infectious Disease Progress Nt ---
Date of Service February 22, 2022 Assessment & Plan (1) Positive blood culture: Plan 67 yo M with a history of prostate cancer, HLD who presented on 02/18 with altered mental status, after being found that morning incontinent of stool, not moving his R side well, with gaze deviation. CT head, CTA head/neck, MRI brain showed no acute findings. He also had a fever to 38.8 and was worked-up for meningitis/encephalitis, with normal LP, negative CSF gram stain and culture, negative CSF biofire panel. Neurology thinks he may have had a seizure secondary to ischemia, with reversible ischemic neurological deficits. His neurological deficits have improved. He was noted to have admission blood cultures growing 2 different staph species in each of the aerobic vials in 2 sets. The BCID2 panel is negative for Staph aureus, Staph epi, Staph lug. Per primary team discussion with the micro lab, there appear to be 4 different Staph species, including Staph hominis, Staph epi. Likely represents contaminants. Recommendations: -Can stop vancomycin -Can complete 5 days of antibiotics for possible CAP today -Will sign off Admission and Anticipated Discharge Date Admission Date: February 18, 2022 Subjective This patient recommendation is based on a telemedicine consult request which was completed asynchronously through chart review and information provided by the primary physician. The patient was not seen or examined today. The evaluation is consultative in nature and all patient care and treatment decisions can either be accepted or rejected by the patient's primary hospital-based treating physician using their own independent medical judgment for their patient. Per primary team discussion with microbiology, there appear to be 4 different Staph species, including Staph hominis and Staph epi no aute events Review of System Pt not seen Physical Exam Physical Exam: Pt not seen Results & Data ([facility]) Vital Signs (Past 12 Hours) Vital Signs Temp Pulse Resp BP Pulse Ox O2 Del Method 02/22/22 07:05 36.7 C 75 20 133/84 91 Room Air 02/22/22 03:18 37.2 C 80 18 117/79 90 Room Air 02/21/22 23:03 37.2 C 72 18 124/85 92 Room Air Laboratory Results Short CBC 02/22/22 Range/Units 08:29 WBC 5.08 (4.8-10.8) K/ul Hgb 11.9 L (14.0-18.0) g/dl Hct 33.9 L (40.1-51.0) % Plt Count 240 (130-400) K/uL BMP 02/22/22 02/22/22 08:29 08:29 Sodium 137 Potassium 3.2 L Chloride 106 Carbon Dioxide 23 BUN 17 Creatinine 0.93 0.91 Glucose 147 H Calcium 8.5 Diagnostic Findings Microbiology 02/18/22 06:41 Blood Aerobic Blood Culture - Preliminary Staphylococcus species Staphylococcus species#2 02/18/22 06:41 Blood Anaerobic Blood Culture - Preliminary No growth in Anaerobic bottle after 48 hours. 02/18/22 06:41 Blood Aerobic Blood Culture - Preliminary Staphylococcus species Staphylococcus species#2 02/18/22 06:41 Blood Anaerobic Blood Culture - Preliminary No growth in Anaerobic bottle after 48 hours. 02/19/22 07:20 Blood Aerobic Blood Culture - Preliminary No growth in Aerobic bottle after 48 hours. 02/19/22 07:20 Blood Anaerobic Blood Culture - Preliminary No growth in Anaerobic bottle after 48 hours. 02/19/22 07:15 Blood Aerobic Blood Culture - Preliminary No growth in Aerobic bottle after 48 hours. 02/19/22 07:15 Blood Anaerobic Blood Culture - Preliminary No growth in Anaerobic bottle after 48 hours. 02/18/22 Unknown Cerebral Spinal Fluid Gram Stain - Final 02/18/22 Unknown Cerebral Spinal Fluid CSF Culture - Final No growth Medications Administered Current Inpatient Medications Albuterol (Albuterol Hfa 8 Gm Inhaler) 2 puffs INH Q8H PRN PRN Reason: wheezing Stop: 03/24/22 09:45 Aspirin (Aspirin 81 Mg Ectab) 81 mg PO QAM [facility] Stop: 03/21/22 14:14 Last Admin: 02/22/22 08:56 Dose: 81 mg Benzonatate (Benzonatate 100 Mg Capsule) 200 mg PO Q8H PRN PRN Reason: Cough Stop: 03/24/22 09:33 Enoxaparin Sodium (Enoxaparin Inj 40 Mg/0.4 Ml Syr) 40 mg SQ QAM [facility] Stop: 03/21/22 08:59 Last Admin: 02/22/22 08:56 Dose: 40 mg Guaifenesin (Guaifenesin Sugar Free 100 Mg/5 Ml Udc) 100 mg PO Q6H PRN PRN Reason: Cough Stop: 03/23/22 13:21 Last Admin: 02/21/22 20:46 Dose: 100 mg Ceftriaxone Sodium 2,000 mg/ (Dextrose) 70 mls @ 100 mls/hr IV Q12H [facility]; Protocol Stop: 02/28/22 20:59 Last Infusion: 02/22/22 09:41 Dose: Infused Lactobacillus Acidophilus (Advanced Probiotic 1250 Mg Capsule) 1 cap PO DAILY [facility] Stop: 03/22/22 08:59 Last Admin: 02/22/22 08:56 Dose: 1 cap Levetiracetam (Levetiracetam 500 Mg Tab) 500 mg PO BID [facility] Stop: 03/22/22 08:59 Last Admin: 02/22/22 08:56 Dose: 500 mg Ondansetron HCl (Ondansetron Inj 2 Mg/Ml 2 Ml Vial) 4 mg IV Q4H PRN PRN Reason: Nausea Stop: 03/20/22 11:14 Pantoprazole Sodium (Pantoprazole 40 Mg Tab) 40 mg PO QAM [facility] Stop: 03/22/22 08:59 Last Admin: 02/22/22 08:56 Dose: 40 mg
[2022-02-22 11:01] VITALS: BP 132/80; TEMP 98.4
[2022-02-22] MEDS ORDERED: VANCOMYCIN LEVEL ONE (11:30)
[2022-02-22 12:19] VITALS: PULSE 90
--- NOTE | 2022-02-22 14:15 | Discharge Summary ---
Discharge Summary Date of Service February 22, 2022 Admission HPI Per Admitting Provider 67 year old M w/ hx of prostate cancer who presents with altered mental status. The patient is obtunded and cannot provide any history, so the history is gotten solely from his and records. Per , he was not feeling well yesterday evening, mostly reporting nausea and some stomach cramping. Around 11pm, they went to bed, and reports he was up at some point overnight. Early in the morning (~5am or so?), she heard a crash in the bathroom and found him on the ground, incontinent of stool. He was also not moving his right side very well and reportedly had a left-eye gaze deviation. EMS was called, and his BP was in the 70s systolic, though it came up with a liter of fluid. In the ER, stroke pathway was initiated, and he got a CT head, CTA head/neck, and MRI brain. None of these showed any acute findings. He then had a fever to 38.8, and pathway was started to work up encephalitis/meningitis. His reports that he is out in the [place] a lot and frequently picks ticks off himself. However, she does not know of any recent tick-bites. Admission Exam Per Admitting Provider Constitutional: WD/WN, vitals as above + acute distress, + disheveled and + in distress Eyes: no eyelid abnormality and no conjunctival abnormality ENMT: external ear and nose normal, oropharynx normal Neck: trachea midline, no thyromegaly normal visual inspection Respiratory: + labored breathing, + uses accessory mu scles, + tachypneic and + grunting; no respiratory distress and no cough Auscultation: lungs clear to auscultation bilaterally Cardiovascular: Rate/Rhythm: regular rate and + tachycardic Gastrointestinal (Abdomen): Inspection/Auscultation: abdomen normal to inspection; abdomen not distended Percussion/Palpation: abdomen soft; abdomen nontender, no guarding and abdomen not rigid Musculoskeletal: No obvious deformities Skin: no rashes, warm and dry Neurologic: moves all extremities (Right side improving) and + obtunded; + not awake Psychiatric: Orientation: + not alert and + not oriented to person Principal Dx & Hospital Course #1 = Principal Diagnosis (1) Reversible ischemic neurologic deficit: 67-year-old male past medical history significant for GERD, hyperlipidemia admitted for sudden onset focal neurologic deficits. Reversible ischemic neurologic deficit: - Presented to the ER with altered mental status, right-sided limb deficits and expressive aphasia. - CTA unremarkable. - Initial MRI on 02/18 was negative for CVA; however, with movement artifact, was thought to only be ~80% sensitive compared with a high-quality study. Repeat MRI on 02/19 was also negative for stroke. - EEG showed mild generalized slowing consistent with encephalopathy. - No shunting noted on Echocardiogram. - Patient continues to have improvement in his focal deficits. Still with some expressive aphasia, otherwise no focal deficits. - DIRECTOR FUNDS DEVELOPMENT, PT/OT all consulted -> patient to have outpatient services on discharge. - Neurology consulted and appreciate recommendations: Suspect that patient had a seizure, perhaps secondary due to microvascular ischemia, with a postictal state. We will continue Keppra outpatient with follow-up with Neurology in 2 weeks. (2) Infectious encephalopathy: - Initially this was the presumed cause of his altered mental status, though now seems less likely. No known toxic ingestions. - On admission was treated for encephalitis/meningitis with vancomycin, ceftriaxone, ampicillin, and acyclovir. - LP on 02/18 without evidence of infection. [employer] CSF panel was negative. - Blood cultures from 02/18 positive in 2/2 bottles, growing general Staph x2 species, non-MRSA. These were ultimately determined to be contaminant. No antibiotics on discharge for these cultures after discussion with ID. (3) Positive blood culture: - See above (4) Aspiration pneumonia: - Believe that this occurred due to his altered mental status, not that it is the etiology of such. - Ceftriaxone 5-day course completed on 02/22. - Tessalon perles prescribed for post-infectious cough. (5) Prostate cancer: - Follows with CCP. No known bony mets. - Continue bicalutamide. (6) Hyperlipidemia: - Continue statin. (7) GERD (gastroesophageal reflux disease): - Continue PPI. Discharge Exam Constitutional WD/WN, vitals as above Respiratory normal respiratory effort, lungs clear to auscultation intermittent cough Cardiovascular RRR, no murmur, no edema Neurologic no focal motor deficits still some mild word finding difficulties, but overall much improved and with no slurred speech Updated Medication List Medication Instructions Recorded Confirmed Type calcium carbonate 600 mg calcium 600 mg PO QDL 04/16/18 12/07/21 History (1,500 mg) tablet (Calcium) cholecalciferol (vitamin D3) 50 2,000 unit PO QDL 04/16/18 12/07/21 History mcg (2,000 unit) tablet (Vitamin D3) vitamin E 268 mg (400 unit) capsule 400 units PO QDL 09/07/18 12/07/21 History ibuprofen 200 mg tablet 400 mg PO DAILY PRN Pain 01/21/19 12/07/21 History naproxen sodium 220 mg tablet 220 mg PO DAILY PRN Pain 01/21/19 12/07/21 History (Aleve) omeprazole 20 mg capsule,delayed 20 mg PO DAILY PRN GERD #30 caps 10/26/20 12/07/21 Rx release bicalutamide 50 mg tablet 50 mg PO DAILY 05/26/21 12/07/21 History gabapentin 300 mg capsule 300 mg PO DAILY #30 caps 11/30/21 12/07/21 Rx atorvastatin 20 mg tablet 20 mg PO QAM #90 tabs 02/14/22 Rx benzonatate 100 mg capsule 200 mg PO Q8H PRN cough 5 days #20 02/22/22 Rx caps levetiracetam 500 mg tablet 500 mg PO BID 30 days #60 tabs 02/22/22 Rx (Keppra) Hospital Stay Data Consultations 02/18/22 06:31 ED Decision to Admit Stat 02/18/22 07:22 ED Decision to Admit Stat 02/18/22 11:15 Consult Neurology Routine 02/18/22 14:05 Consult Mortgage Loan Interviewer Routine 02/21/22 11:16 Consult Infectious Diseases Routine Diagnostic Imagining Performed 02/18/22 05:15 CT angio head w con Stat CT angio neck with con Stat CT head/brain wo con Stat 02/18/22 06:20 MRI Brain [MR brain wo con] Stat 02/18/22 09:33 CT angio chest PE protocol Stat 02/19/22 06:58 MR brain seizure wo/w con Urgent Pending Results Patient Have Any Pending Studies at Discharge: No Discharge Instructions Given to Patient (Per Discharging Provider) You were admitted to the hospital for right sided weakness and speech issues. You were evaluated for a stroke with two MRIs, both of which were negative. You were evaluated by Neurology who recommended an infectious workup for encephalitis. This was negative. You were noted to have a pneumonia, for which you were treated with antibiotics while in the hospital, which you completed today (02/22). You were given medications for cough, which were also sent to the [facility]. This is called abdi boyd. You can take two tablets every 8 hours for cough. You can also try over the counter cough medications. You were started on Keppra (also called levetiracetam) twice daily for suspected seizure. You should continue this medication until seen in Dr. Grossman's office in 2 weeks. This was also sent to [facility]. You were given prescriptions for physical and speech therapy to continue working on strength. You should have follow up with your primary care doctor within 10 days of discharge. If you do not hear from their office by Monday please call for an appointment. If you have return or worsening of your neurologic symptoms, or worsening of you r cough and trouble breathing, please call your PCP and seek urgent medical attention. It was a pleasure caring for you. Total Time Total Time Spent Total Time Spent (In Minutes): 45 Coding Level of Care Code D/C DAY MANAGEMENT >30 MINS Diagnoses Reversible ischemic neurologic deficit I63.9 Infectious encephalopathy G93.49; B99.9 Positive blood culture R78.81 Aspiration pneumonia J69.0 Prostate cancer C61 Hyperlipidemia E78.5 GERD (gastroesophageal reflux disease) K21.9
[2022-02-23 08:41] LABS: A calco-baum cmplx NotReported Not Detected (NotDetected); Bact fragilis Not Reported Not Detected (NotDetected); C auris Not Reported Not Detected (NotDetected); Calbicans Not Reported Not Detected (NotDetected); Candida glabrata Not Reported Not Detected (NotDetected); Candida krusei Not Reported Not Detected (NotDetected); Cneoformans/gatti Not Reported Not Detected (NotDetected); Cparapsilosis Not Reported Not Detected (NotDetected); Ctropicalis Not Reported Not Detected (NotDetected); E cloacae compx Not Reported Not Detected (NotDetected); Efaecalis Not Reported Not Detected (NotDetected); Efaecium Not Reported Not Detected (NotDetected); Enterobacterales Not Reported Not Detected (NotDetected); Escherichia coli Not Reported Not Detected (NotDetected); H influenzae Not Reported Not Detected (NotDetected); K aerogenes Not Reported Not Detected (NotDetected); Koxytoca Not Reported Not Detected (NotDetected); Kpneumoniae grp Not Reported Not Detected (NotDetected); Lmonocyt Not Reported Not Detected (NotDetected); N meningitidis Not Reported Not Detected (NotDetected); P aeruginosa Not Reported Not Detected (NotDetected); Proteus spp Not Reported Not Detected (NotDetected); Salmonella spp Not Reported Not Detected (NotDetected); Smarcescens Not Reported Not Detected (NotDetected); Staph lugdunensis Not Reported Not Detected (NotDetected); Staph spp. Not Reported Not Detected (NotDetected); Staphaureus Not Reported Not Detected (NotDetected); Staphepi Not Reported Not Detected (NotDetected); Stenmaltophilia Not Reported Not Detected (NotDetected); Strep agal(GrpB) Not Reported Not Detected (NotDetected); Strep pneum Not Reported Not Detected (NotDetected); Strep pyog (GrpA) Not Reported Not Detected (NotDetected); Strep spp Not Reported Not Detected (NotDetected)
[2022-02-23 12:08] LABS: Ehrlichia chaff DNA Bld Negative (Negative)
== END 2022-02-22 14:04 | disposition home or self-care (01) | DRG 64 ==
LOC: ED 05:10 → SUATTDRO 09:51 → 2E 09:51